=== PATIENT | male | born 1930 | race Caucasian/White ===

== ENCOUNTER 2017-11-17 13:29 | Emergency (ER) | payer MEDICARE, BC ==
[2017-11-17 14:18] VITALS: RESP 20
[2017-11-17] MEDS ORDERED: HYDROcodone/APAP 5-325MG 1 EACH TAB PO STA (15:12)
--- NOTE | 2017-11-17 15:52 | ED ---
Back Pain HPI - General Chief Complaint: Back Pain/Injury Stated Complaint: sciatic nerve Time Seen by Provider: 11/17/17 14:56 Source: patient, RN notes reviewed Mode of arrival: wheelchair Limitations: no limitations - History of Present Illness Initial Comments: This is an 87-year-old male presents emergency Department chief complaint of severe right leg right low back pain. Patient states it started a few days ago has been seen his chiropractor for but has had no relief. Patient states he normally has some issues but not to this extent. He states normally goes chiropractor he is much better. He is advised to come to the emergency department for possible MRI as suggested by his chiropractor. Patient denies any leg swelling, leg pain, discoloration. He has no prior DVT. Denies any abdominal pain, chest pain, shortness of breath. He states the worst pain is just distal of his hip. He denies any falls or trauma. He states he has excruciating pain with weightbearing on the right side but also with twisting. He states he feels better when he forward flex at the hips. He denies any dysuria hematuria. - Related Data Home Medications Medication Instructions Recorded Confirmed Atorvastatin [Lipitor] 10 mg PO DAILY 15 12/03/14 Previous Rx's Medication Instructions Recorded Apixaban [Eliquis] 2.5 mg PO BID #14 tab 12/03/14 Levofloxacin [Levaquin] 500 mg PO DAILY #10 tab 12/03/14 predniSONE 50 mg PO DAILY #5 tab 12/03/14 Hydrocodone/Acetaminophen [[place] 1 tab PO Q6HR PRN #20 tab 11/17/17 5-325] predniSONE 50 mg PO DAILY #5 tab 11/17/17 Allergies Allergy/AdvReac Type Severity Reaction Status Date / Time Sulfa (Sulfonamide Allergy Unknown Verified 11/17/17 14:18 Antibiotics) Review of Systems ROS Statement: Those systems with pertinent positive or pertinent negative responses have been documented in the HPI. ROS Other: All systems not noted in ROS Statement are negative. Past Medical History Past Medical History: Atrial Fibrillation, Hyperlipidemia, Hypertension Additional Past Medical History / Comment(s): sciatica History of Any Multi-Drug Resistant Organisms: None Reported Past Surgical History: Appendectomy, Cholecystectomy Past Psychological History: No Psychological Hx Reported Smoking Status: Former smoker Past Alcohol Use History: Occasional Past Drug Use History: Unable to Obtain General Exam Limitations: no limitations General appearance: alert, in no apparent distress Head exam: Present: atraumatic, normocephalic, normal inspection Respiratory exam: Present: normal lung sounds bilaterally. Absent: respiratory distress, wheezes, rales, rhonchi, stridor Cardiovascular Exam: Present: regular rate, normal rhythm, normal heart sounds. Absent: systolic murmur, diastolic murmur, rubs, gallop, clicks GI/Abdominal exam: Present: soft, normal bowel sounds. Absent: distended, tenderness, guarding, rebound, rigid Extremities exam: Present: other (Pain with logrolling of the right hip, pedal pulses equal bilaterally there is no swelling no discoloration and no change in warmth of either leg he does have some tenderness at the right hip) Back exam: Present: full ROM, tenderness (Right low back), paraspinal tenderness. Absent: vertebral tenderness Skin exam: Present: warm, dry, intact, normal color. Absent: rash Course Vital Signs 11/17/17 14:14 Temperature 98.0 F Pulse Rate 78 Respiratory 20 Rate Blood Pressure 169/81 O2 Sat by Pulse 96 Oximetry Medical Decision Making - Medical Decision Making 87-year-old male presented from for back and leg pain. Patient has severe degenerative disc disease, lumbar radiculopathy and spinal stenosis. Patient will be given pain medication, steroids. He is advised follow-up with Dr. Mer[facility] Patient does not have any red flag symptoms he has no bowel bladder incontinence or retention. Patient has normal pulses of lower extremities. Patient agrees to plan return parameters were discussed. Disposition Clinical Impression: Lumbar radiculopathy, acute, Lumbar spinal stenosis, Lumbar degenerative disc disease Disposition: HOME SELF-CARE Condition: Stable Instructions: Lumbar Radiculopathy (ED), Lumbar Spinal Stenosis (ED) Additional Instructions: Please return to the Emergency Department if symptoms worsen or any other concerns. Prescriptions: Hydrocodone/Acetaminophen [[place] 5-325] 1 tab PO Q6HR PRN #20 tab PRN Reason: Pain predniSONE 50 mg PO DAILY #5 tab Referrals: Ben Ryan MD [Primary Care Provider] - 1-2 days Rao Slaughter DO [Doctor of Osteopathic Medicine] - 1-2 days Time of Disposition: 16:27
--- NOTE | 2017-11-17 16:01 | CT ---
EXAMINATION TYPE: CT lumbar spine wo con DATE OF EXAM: 11/17/2017 COMPARISON: NONE HISTORY: low back and sharp shooting pains into right hip. no injury. CT DLP: [address] of the lumbar spine was performed. Bone and soft tissue window settings are submitted as well as coronal and sagittal reconstructions. L1-L2: Normal disc space height. No disc herniation protrusion or central stenosis. No facet joint arthropathy. No evidence for foraminal encroachment. L2-L3: Severe degenerative disc space narrowing with the endplate sclerosis. Ventral and dorsal spond ylosis with posterior disc bulge and encapsulating spur. There is a [id number] central stenosis noted at this level. Mild bilateral foraminal encroachment. L3-L4: Severe degenerative disc space narrowing. Endplate sclerosis. Circumferential disc bulge. Effa cement ventral thecal sac with borderline central stenosis and bilateral lateral recess stenosis. L4-L5: Severe degenerative disc disease. Circumferential disc bulge with greater focal component para centrally and to the right where I cannot exclude a disc protrusion. Right lateral recess stenosis. M oderate central stenosis. Bilateral foraminal encroachment. L5-S1: Severe disc space narrowing. Mild posterior disc bulge. No herniation protrusion or central st enosis. Foramina are patent bilaterally. No paraspinal masses are identified. Lumbar segments are free of fracture. IMPRESSION: 1. Multilevel degenerative disc disease. 2. Multilevel central stenosis as noted.
--- NOTE | 2017-11-17 16:03 | CT ---
EXAMINATION TYPE: CT hip RT wo con DATE OF EXAM: 11/17/2017 COMPARISON: NONE HISTORY: low back and sharp shooting pains into right hip. no injury. CT DLP: 413 mGycm Automated exposure control for dose reduction was used. FINDINGS: There is multilevel degenerative disc disease within the lumbar spine. Vascular calcifications are no calixto. Sclerotic density involving the right femoral neck and acetabulum related to bone island possibl y remote bone infarct. There is no acute fracture. Concentric narrowing the joint space is seen with a nonspherical morphology of the femoral head. Peter elate for arthropathy with femoral acetabular impingement. Atherosclerotic change of the vasculature noted. IMPRESSION: ARTHROPATHY OF THE HIP JOINT WITH NO EVIDENCE OF EROSIVE CHANGE. CORRELATE FOR FEMORAL ACETABULAR IMP INGEMENT. MULTILEVEL SEVERE DEGENERATIVE CHANGE OF THE LUMBAR SPINE.
[2017-11-17 16:44] VITALS: BP 142/66; PULSE 89; TEMP 98
== END 2017-11-17 16:43 | disposition home or self-care (01) ==
LOC: EC 13:29
DX: M48.061 Spinal stenosis, lumbar region without neurogenic claudication (principal); M51.16 Intervertebral disc disorders with radiculopathy, lumbar region; E78.5 Hyperlipidemia, unspecified; Z87.891 Personal history of nicotine dependence; Z79.899 Other long term (current) drug therapy; Z88.2 Allergy status to sulfonamides
CPT/HCPCS: 72131; 99283

== ENCOUNTER → 2017-12-18 | Outpatient (CLI) | payer MEDICARE, BC ==
[2017-12-18 13:59] LABS: HCT 47.1 % (39.0-53.0); HGB 15.4 gm/dL (13.0-17.5); MCH 29.2 pg (25.0-35.0); MCHC 32.6 g/dL (31.0-37.0); MCV 89.3 fL (80.0-100.0); Mean Platelet Volume 6.5; Platelet Count 346 k/uL (150-450); RBC 5.28 m/uL (4.30-5.90); RDW 13.9 % (11.5-15.5); WBC 11.9 k/uL (3.8-10.6)
[2017-12-18 14:00] LABS: Appearance,Urine Clear (Clear); Bilirubin,Urine Negative (Negative); Blood,Urine Negative (Negative); Color,Urine Light Yellow; Glucose,Urine (UA) Negative (Negative); Ketones,Urine Negative (Negative); Leukocyte Esterase,Urine Negative (Negative); Nitrite,Urine Negative (Negative); Protein,Urine Negative (Negative); Specific Gravity,Urine 1.009 (1.001-1.035); Urobilinogen,Urine <2.0 mg/dL (<2.0)
[2017-12-18 14:08] LABS: INR 1.1 (<1.2); Prothrombin Time 10.6 sec (9.0-12.0)
[2017-12-18 14:12] LABS: Albumin 3.8 g/dL (3.5-5.0); Calcium 9.5 mg/dL (8.4-10.2); Potassium 4.5 mmol/L (3.5-5.1); Total Bilirubin 0.9 mg/dL (0.2-1.3); Total Protein 6.8 g/dL (6.3-8.2)
== END | disposition home or self-care (01) ==
LOC: LABPAT 12:46
PROVIDERS: ATTEND Orthopaedic Surgery
DX: Z01.812 Encounter for preprocedural laboratory examination (principal); Z79.01 Long term (current) use of anticoagulants
CPT/HCPCS: 36415; 80053; 81003; 85027; 85610; 85730; 87070

== ENCOUNTER 2018-01-11 13:04 | Inpatient (IN) | payer MEDICARE, BC ==
[2017-12-31 14:42] VITALS: BMI 28.1
[~2018-01-11 13:04] MED LIST: ACETAMINOPHEN TAB 500 MG TAB PO ONE; CLINDAMYCIN 900 MG in DEXTROSE 5% IN WATER 50 ML IVPB ONE; LIDOCAINE 1% 20 ML VIAL (10MG/ML) FOR IV START INTRADERMA PRN; MELOXICAM 7.5 MG TAB PO ONE; MORPHINE SULFATE 4 MG/ML SYRINGE IV PRN; ONDANSETRON 4 MG/2 ML VIAL IVP ONE; TRANEXAMIC ACID 1,000 MG in SODIUM CHLORIDE 0.9% 50 ML IVPB ONE
[2018-01-11 14:04] LABS: Glucose,Whole Blood 78 mg/dL (75-99)
[2018-01-11] MEDS: LACTATED RINGERS 1,000 ML IV SCH ×2 (14:24→20:48)
[2018-01-11] MEDS ORDERED: DEXAMETHASONE SOD PHOSPHATE 10 MG/ML 1 ML VIAL IV ONE (14:24)
[2018-01-11] MEDS ORDERED: ROPIVACAINE 246.25 MG, EPINEPHrine 0.5 MG, KETOROLAC 30 MG, cloNIDine HCL/PF 80 MCG, WA... MISCELLANE ONE ×5 (15:21)
[2018-01-11] MEDS ORDERED: diphenhydrAMINE 50 MG/ML 1 ML VIAL ONE (15:58)
[2018-01-11] MEDS ORDERED: MIDAZOLAM 2 MG/2 ML VIAL ONE (15:58)
[2018-01-11] MEDS ORDERED: CLINDAMYCIN 1,800 MG in SODIUM CHLORIDE 0.9% IRRIGATIO 3,000 ML IRRIGATION ONE (15:58)
[2018-01-11] MEDS ORDERED: fentaNYL (PF) 50 MCG/ML 2 ML AMP ONE (15:58)
[2018-01-11] MEDS ORDERED: SODIUM CHLORIDE 0.9% 100 ML BAG ONE (15:58)
[2018-01-11] MEDS ORDERED: TRANEXAMIC ACID 1,000 MG/10 ML VIAL ONE (15:58)
[2018-01-11] MEDS ORDERED: LACTATED RINGERS 1,000 ML IV ONE (17:15)
[2018-01-11] MEDS ORDERED: BISACODYL 10 MG SUPP RECTAL PRN (18:12)
[2018-01-11] MEDS ORDERED: HYDROcodone/APAP 5-325MG 1 EACH TAB PO PRN ×2 (18:12)
[2018-01-11] MEDS ORDERED: NA PHOS,M-B/NA PHOS,DI-BA 133 ML ENEMA RECTAL PRN (18:12)
[2018-01-11] MEDS ORDERED: MAGNESIUM HYDROXIDE 2,400 MG/10 ML CUP PO PRN (18:12)
[2018-01-11] MEDS ORDERED: HYDROmorphone 0.5 MG/0.5 ML SYRINGE IVP PRN ×4 (18:12)
[2018-01-11] MEDS ORDERED: ONDANSETRON 4 MG/2 ML VIAL IVP PRN (18:12)
[2018-01-11] MEDS ORDERED: NALOXONE 0.4 MG/ML 1 ML VIAL IV PRN (18:12)
[2018-01-11] MEDS ORDERED: ACETAMINOPHEN TAB 325 MG TAB PO PRN (18:12)
[2018-01-11] MEDS ORDERED: WARFARIN 5 MG TAB PO ONE (18:30)
--- NOTE | 2018-01-11 18:36 | XR ---
EXAMINATION TYPE: XR knee limited RT DATE OF EXAM: 01/11/2018 COMPARISON: NONE HISTORY: Postop knee surgery TECHNIQUE: 2 views FINDINGS: There is a right knee prosthesis. Components appear in anatomic position. IMPRESSION: No complicating process seen.
[2018-01-11] MEDS ORDERED: SENNOSIDES-DOCUSATE SODIUM 1 EACH TAB PO SCH (21:00)
[2018-01-12] MEDS: CLINDAMYCIN 900 MG in DEXTROSE 5% IN WATER 50 ML IVPB SCH ×4 (00:17→05:10)
--- NOTE | 2018-01-12 00:21 | PN ---
PROGRESS NOTE REASON FOR CONSULTATION: Postoperative medical management. HISTORY OF PRESENT ILLNESS: This 87-year-old gentleman was admitted to the hospital, seen preoperatively. The patient has underlying history of paroxysmal atrial fibrillation and suffers from significant degenerative arthritis. He had recent significant sciatic nerve pain which has improved with epidural injections. The patient also has significant degenerative arthritic pain in the knee with difficulty walking. The patient in view of this underwent right total knee arthroplasty. The patient has a history of hypertension, controlled. REVIEW OF SYSTEMS: NEURO: Denies any headaches, dizziness. PSYCH: No anxiety. CARDIAC: No chest pain, angina, palpitation. RESPIRATORY: No shortness of breath, cough. GI: No nausea, vomiting, abdominal pain. : Has IDC. EXTREMITIES: Denies pain. At present the patient is still under the effect of the spinal anesthetic. PHYSICAL EXAMINATION: Pleasant gentleman in no distress. Vital signs revealed temperature was 96.9, pulse 89, respirations 16, blood pressure 138/66, pulse ox 96% on room air. HEENT: Normocephalic. NECK: No JVD. CHEST: Clear to auscultation. CARDIAC: Normal S1, S2 with no gallop. Systolic murmur 2/6, left sternal border. Regular rhythm. ABDOMEN: Soft. Bowel sounds present. EXTREMITIES: No edema. Neurologically awake, alert, oriented x3 with well-coordinated movements, both upper extremities. LABORATORY ASSESSMENT: Blood sugar of 378 preoperatively. ASSESSMENT: 1. Paroxysmal atrial fibrillation. 2. Hypertension, controlled. 3. Degenerative arthritis, lumbosacral spine and right knee joint. 4. Status post right knee arthroplasty. PLAN: The patient is stable. Continue present medical regimen. Patient's condition discussed with the patient. Prognosis guarded. We will start the patient back on Eliquis tomorrow if that is okay with the surgeon. Prognosis guarded. MMODL / IJN: [id number] /
[2018-01-12] MEDS: LACTATED RINGERS 1,000 ML IV SCH ×2 (05:11→09:09)
[2018-01-12 08:11] VITALS: BP 141/65; PULSE 69; RESP 14; TEMP 97.1
[2018-01-12 08:29] LABS: HCT 40.6 % (39.0-53.0); HGB 13.6 gm/dL (13.0-17.5); MCH 30.4 pg (25.0-35.0); MCHC 33.5 g/dL (31.0-37.0); MCV 90.6 fL (80.0-100.0); Platelet Count 316 k/uL (150-450); RBC 4.48 m/uL (4.30-5.90); RDW 14.4 % (11.5-15.5)
--- NOTE | 2018-01-12 08:59 | P.DS ---
Providers Date of admission: 01/11/18 13:04 Expected date of discharge: 01/12/18 Attending physician: Ld Law Consults: 01/11/18 18:12 Consult Physician Routine Consulting Provider: Ben Ryan Consult Reason/Comments: Medical management Do you want consulting provider notified?: Yes Primary care physician: Ben Ryan - Discharge Diagnosis(es) (1) Status post total right knee replacement Current Visit: Yes Status: Acute (2) Osteoarthritis of right knee Current Visit: Yes Status: Acute Hospital Course: This is a pleasant 87-year-old male last seen in our office with complaints of right knee pain. Patient has known history of degenerative arthritis of the right knee and presented to discuss options. After discussion and consideration , patient elected to proceed with a total knee arthroplasty of the right knee. The patient was seen preoperatively and medically cleared for surgery by his primary care physician. The patient was admitted to [facility] and underwent right total knee arthroplasty on 01/11/[address] Law. The procedure was performed without complications or sequelae. The patient has done well postoperatively. The patient was seen and evaluated at bedside today and denies any new complaints. Pain is reasonably controlled. Dressing is clean dry and intact. Incision looks fine with no erythema or active drainage. Calf is soft and nontender. The patient has full foot and ankle motion without difficulty. Patient's right lower extremity is neurovascular intact. Patient is orthopedically stable for discharge to home today. Pertinent Studies: Laboratory Tests 01/12/18 07:57 WBC 21.0 H RBC 4.48 Hgb 13.6 Hct 40.6 Patient Condition at Discharge: Stable Plan - Discharge Summary Discharge Rx Participant: No New Discharge Prescriptions: New HYDROcodone/APAP 5-325MG [[place] 5-325] 1 - 2 each PO Q4-6H PRN #90 tab PRN Reason: Pain Sennosides-Docusate Sodium [Senokot-S] 1 tab PO BID #60 tablet No Action Atorvastatin [Lipitor] 10 mg PO DAILY Losartan Potassium [Cozaar] 100 mg PO DAILY Apixaban [Eliquis] 5 mg PO BID Hydrochlorothiazide 12.5 mg PO DAILY Discharge Medication List Atorvastatin [Lipitor] 10 mg PO DAILY 12/03/14 [History] Apixaban [Eliquis] 5 mg PO BID 12/31/17 [History] Hydrochlorothiazide 12.5 mg PO DAILY 12/31/17 [History] Losartan Potassium [Cozaar] 100 mg PO DAILY 12/31/17 [History] HYDROcodone/APAP 5-325MG [[place] 5-325] 1 - 2 each PO Q4-6H PRN #90 tab 01/11/18 [Rx] Sennosides-Docusate Sodium [Senokot-S] 1 tab PO BID #60 tablet 01/11/18 [Rx] Follow up Appointment(s)/Referral(s): Wilma Austin PAC [PHYSICIAN MIDWIFE PRACTITIONER] - 2 Weeks Ben Ryan MD [Primary Care Provider] - 1 Week Ambulatory/Diagnostic Orders: Continuous Passive Motion (CPM) Machine [DME.AMB1] Time Frame: 3 Weeks, Facility : [facility], Location: Case Management Activity/Diet/Wound Care/Special Instructions: May bear wt as tolerated with walker. May shower if no drainage from incision. CPM 5-6h daily. Medical to manage anticoagulation. Discharge Disposition: HOME WITH HOME HEALTH SERVICES
[2018-01-12] MEDS ORDERED: MELOXICAM 7.5 MG TAB PO SCH (09:00)
[2018-01-12] MEDS ORDERED: LOSARTAN 50 MG TAB PO SCH (09:00)
[2018-01-12] MEDS ORDERED: APIXABAN 5 MG TAB PO SCH (09:00)
[2018-01-12 09:59] LABS: Lymphocytes # (M) 5.46 k/uL (1.0-4.8); Neutrophils # (M) 14.28 k/uL (1.3-7.7); Neutrophils % (M) 68 %
[2018-01-12 10:00] LABS: Monocytes # (M) 1.26 k/uL (0-1.0); Nucleated Red Blood Cells 0 /100 WBC (0-0); Total Cells Counted 100
--- NOTE | 2018-01-12 22:33 | PN ---
PROGRESS NOTE ATTENDING PHYSICIAN: Dr. Law. CONSULTING PHYSICIAN: Dr. Joel Ryan. CHIEF COMPLAINT: Re-evaluation. HISTORY OF PRESENT ILLNESS: This 87-year-old gentleman was admitted to the hospital and underwent right total knee arthroplasty. The patient is doing fairly well this morning. He has a history of paroxysmal atrial fibrillation and hypertension. Blood pressure is controlled. The patient's rhythm is sinus. REVIEW OF SYSTEMS: NEURO: Denies any headaches, dizziness. PSYCH: No anxiety. CARDIAC: No chest pain, angina, palpitations. RESPIRATORY: Denies shortness of breath, cough. GI: No nausea, vomiting, abdominal pain, diarrhea. : No symptoms of dysuria, hematuria. EXTREMITIES: Pain at the right knee. CONSTITUTIONAL: No fever, chills. PHYSICAL EXAMINATION: Pleasant gentleman in no distress. Vital signs revealed temperature 98.3, pulse 80, blood pressure was 94/61, respirations are 18 pulse ox 100% on 2L. HEENT: Normocephalic. NECK: No JVD. CHEST: Clear to auscultation. CARDIAC: Normal S1, S2 with no gallops, murmurs. Regular rhythm. ABDOMEN: Soft. Bowel sounds present. EXTREMITIES: No edema. No tenderness. NEUROLOGIC: Awake, alert, oriented, well-coordinated movements, both upper extremities. LABORATORY ASSESSMENT: White count 21,000, hemoglobin 13.6. The elevated white count is probably more related to steroid use. The patient otherwise feeling well. We will continue present medical regimen. The patient to resume Eliquis as soon as possible. The patient's condition discussed with the patient. Prognosis guarded. MMODL / IJN: [id number] /
--- NOTE | 2018-01-20 17:22 | P.OP ---
Date of Procedure: 01/11/18 Procedure(s) Performed: PREOPERATIVE DIAGNOSIS: Right knee severe osteoarthritis with genu varum POSTOPERATIVE DIAGNOSIS: Right knee severe osteoarthritis with genu varum OPERATION: Right knee cemented total replacement arthroplasty. ANESTHESIA: Spinal ESTIMATED BLOOD LOSS: 100 ml. RADIOSONDE OPERATOR: Wilma Austin PA-C (assistance with: patient positioning, retraction, exposure, hemostasis, leg positioning, implantation, irrigation, closure, dressing) COMPLICATIONS: None apparent. COMPONENTS IMPLANTED: Persona system from [employer] INDICATIONS: Mr. Palma is an 87-year-old male with a history of knee osteoarthritis. The patient's knee is end-stage, and conservative management has failed. The operation of knee replacement has been discussed at length in the office, as well as potential risks and complications. These are inclusive of, but not limited to: bleeding, infection, scarring, discomfort, blood vessel and nerve damage, need for further surgery, failure to relieve symptoms, persistence, recurrence, or worsening of problems, loosening, dislocation, wear , blood clot, pulmonary embolism, , gait dysfunction, stiffness, and other risks as discussed in the office. The patient elects to proceed and the consent form has been signed. PROCEDURE: The patient was taken to the operating room and positioned on the operating room table in the supine position. Anesthesia was initiated. Care was taken to make sure that all pressure points were adequately padded. The operative lower extremity was prepped and draped in the usual aseptic fashion using ChloraPrep. Ioban drape was used for the case and the patient received intravenous antibiotics within one hour of the incision. A pneumotourniquet and leg alvarez were used for the case. The limb was exsanguinated with an Esmarch bandage and the tourniquet was inflated to 350 mmHg. Time-out was called confirming the patient's identity, side, procedure and administration of antibiotics. The incision was then created midline directly over the knee, carried down through skin and into the subcutaneous tissues and down to fascia. Full thickness subcutaneous medial flap was developed. Medial parapatellar arthrotomy was performed and the interior of the knee was inspected. There was end-stage osteoarthritis of the knee with a mild to moderate genu varum type deformity. The fat pad was excised and proximal medial release on the tibia was completed using meticulous dissection and a curved osteotome. The anterior cruciate ligament was taken down. Note was made of significant attrition of the anterior and significant degenerative appearance of the posterior cruciate ligaments. The exposure was excellent. The knee was flexed 90 degrees and the patella was everted. A spot was chosen on the femur approximately 1 cm anterior to the posterior cruciate ligament insertion and an intramedullary hole was created within the femur. The intramedullary guide was then set to 5 degrees of valgus. The distal cutting block was attached and pinned into position. An appropriate amount of distal femoral resection was set. The oscillating saw was then used to make the distal femoral cut. This cut was confirmed to be flat with the flat end of an osteotome. The retractors were placed around the tibia and the tibial surface was addressed. The angle and depth of resection was adjusted using an extramedullary cutting guide. The guide had a built-in 3 degree posterior slope cut. Once the cutting guide was adjusted appropriately and in line with the axis of the tibia and confirmed to be in good position in relation to the second metatarsal and transmalleolar axis, the tibial cut was then created with protection of the posterior neurovascular structures and the collateral ligaments. The tibial cut surface was removed and sized. Femoral sizing was then accomplished using anterior referencing. Care was taken to analyze the posterior condyles for signs of deficiency or severe wear, and adjustments to the guide were made, as appropriate. 3 degree external rotation pins were placed. The cutting jig for the femur was applied to these pins. The planned cuts were further analyzed prior to performing them with the oscillating saw. No femoral notching was produced. Bone fragments were removed and the cut surfaces were finished, as necessary, with a reciprocating saw. Spacer block technique was then used to confirm that the flexion and extension gaps were equal. Soft tissue releases and adjustment of the tibial and/or femoral cuts were made, as necessary, until the gaps were equal. This included release of the posterior cruciate ligament, which was tight in this patient and , if left unreleased, would have resulted in poor kinematics and possibly early loosening. The femur was then further finished for a posterior cruciate ligament substituting component. Patellar resurfacing was performed using a reamer. The size of the required patellar component was estimated and the patellar surface was then reamed down to a residual thickness which would recreate the iroquois thickness with the component. The placement of the patellar component was influenced by the degree of patellar subluxation, if any, noted on the preoperative x-rays. Prior to placing trial components, anesthetic solution consisting of ropivicaine with epinephrine, ketorolac, and clonidine was injected carefully and methodically in a grid pattern using aspiration technique into the soft tissue around the knee circumferentially, starting with the deeper tissues first and progressing to fascia, and then finally the skin/subcutaneous tissue. Particular care was taken when injecting the posterior capsule. The trial components were inserted. The tibial tray was allowed to self center and the patella was noted to track very well. The position of the tibial component was marked and the tibia was then finished for a stemmed tibial component. Cement was mixed on the back table and applied to the final components. Trial components were removed and the cut surfaces of the bone were pulse lavaged thoroughly and dried. Cement was then applied to the tibial surface and pressurized into the surface using finger pressurization technique. The tibial component was then applied and excess cement was removed after it was impacted securely and noted to be flush with the cut surface. In similar fashion, the cement was applied to the cut femoral surface, pressurized in using finger pressurization and the component was impacted into place. Excess cement was removed. The polyethylene spacer was then implanted and locked into position. The patellar component was then applied in similar technique and a patellar clamp was used to hold the patella in place as the cement hardened. Once the cement had fully hardened, the knee was reinspected. Any other cement extrusion was removed and final kinematic testing showed range of motion from 0 to 130 degrees with excellent stability, both medially and laterally and appropriate alignment of the leg. Patellar tracking was excellent. The knee was then thoroughly pulse lavaged with normal saline. The tourniquet was deflated and hemostasis was obtained with electrocautery and IV tranexamic acid, 1 g given at the start of the operation and 1 g at the start of closure. Closure was with #2 Ethibond in the fascia/capsule and supplemented with #2 Quill, 2-0 Vicryl suture was used for the subcutaneous tissues and 3-0 Quill for the skin. Dermabond/Steri-Strips were then applied. A lightly compressive dressing was applied using Webril and an Benson wrap. The patient was then transferred to stretcher and taken to the recovery room in stable condition. Sponge and needle counts were correct.
== END 2018-01-12 15:30 | disposition home health service (06) | DRG 470 ==
LOC: 2ORMAIN 13:04 → 3SUR 18:08
PROVIDERS: ADMIT Orthopaedic Surgery; ATTEND Orthopaedic Surgery
PROC: 0SRC0J9 Replacement of Right Knee Joint with Synthetic Substitute, Cemented, Open Approach (ICD-10-PCS; principal; 2018-01-11 15:30)
DX: M17.11 Unilateral primary osteoarthritis, right knee (principal); I48.0 Paroxysmal atrial fibrillation; M21.161 Varus deformity, not elsewhere classified, right knee; I10 Essential (primary) hypertension; N40.1 Benign prostatic hyperplasia with lower urinary tract symptoms; R35.1 Nocturia; M50.30 Other cervical disc degeneration, unspecified cervical region; M47.26 Other spondylosis with radiculopathy, lumbar region; E78.5 Hyperlipidemia, unspecified; Z79.01 Long term (current) use of anticoagulants; Z79.899 Other long term (current) drug therapy; Z90.49 Acquired absence of other specified parts of digestive tract; Z98.42 Cataract extraction status, left eye; Z98.41 Cataract extraction status, right eye; Z88.0 Allergy status to penicillin; Z88.2 Allergy status to sulfonamides
CPT/HCPCS: 85025; 88300

== ENCOUNTER 2018-02-03 02:24 | Emergency (ER) | payer MEDICARE, BC ==
[2018-02-03 02:41] VITALS: RESP 18; TEMP 98.3
--- NOTE | 2018-02-03 03:34 | ED ---
General Adult HPI - General Chief complaint: Urogenital Stated complaint: MALE Time Seen by Provider: 02/03/18 02:45 Source: patient Mode of arrival: wheelchair Limitations: no limitations - History of Present Illness Initial comments: 87-year-old male patient presents to emergency department today for evaluation of decreased urine output. Patient states that his last full urination occurred around 1900 evening. Patient states he is usually up several times throughout the night urinating because he does take a water pill. He states that he has not gotten up at all tonight. Patient states that just prior to arrival he was able to void a very small amount. Patient states doesn't feel pressure in his suprapubic region or the urge to urinate but is concerned because he usually goes so often. Patient denies any back pain. Denies any current nausea, vomiting, dizziness, weakness, or abdominal pain. States that Thursday evening he did have an episode where he became dizzy, nauseous, and had some sweats but the symptoms resolved quickly. Patient denies any history of kidney problems. He denies any issues previously with urinary retention. Patient denies any recent rash, fever, chills, shortness breath, chest pain, diarrhea, constipation, back pain, numbness, tingling, dizziness, weakness, hematuria, dysuria, headache, visual changes, or any other complaints. Patient did have right total knee replacement approximately 3 weeks ago. - Related Data Home Medications Medication Instructions Recorded Confirmed Atorvastatin [Lipitor] 10 mg PO DAILY 12/03/14 02/03/18 Apixaban [Eliquis] 5 mg PO BID 12/31/17 02/03/18 Losartan Potassium [Cozaar] 100 mg PO DAILY 12/31/17 02/03/18 RX: Hydrochlorothiazide 12.5 mg PO DAILY 12/31/17 02/03/18 Previous Rx's Medication Instructions Recorded RX: HYDROcodone/APAP 5-325MG 1 - 2 each PO Q4-6H PRN #90 tab 01/11/18 [[place] 5-325] Sennosides-Docusate Sodium 1 tab PO BID #60 tablet 01/11/18 [Senokot-S] Allergies Allergy/AdvReac Type Severity Reaction Status Date / Time Penicillins Allergy Unknown Verified 02/03/18 02:41 Sulfa (Sulfonamide Allergy Unknown Verified 02/03/18 02:41 Antibiotics) Review of Systems ROS Statement: Those systems with pertinent positive or pertinent negative responses have been documented in the HPI. ROS Other: All systems not noted in ROS Statement are negative. Past Medical History Past Medical History: Atrial Fibrillation, Hyperlipidemia, Hypertension Additional Past Medical History / Comment(s): DDD, spinal stenosis with bone spur, sciatica, pain clinic epidural injections December 01, 2017 History of Any Multi-Drug Resistant Organisms: None Reported Past Surgical History: Appendectomy, Cholecystectomy, Joint Replacement Additional Past Surgical History / Comment(s): josé luis cataract surgery lens implant , Right knee replacement Past Anesthesia/Blood Transfusion Reactions: No Reported Reaction Past Psychological History: No Psychological Hx Reported Smoking Status: Former smoker Past Alcohol Use History: Occasional Past Drug Use History: None Reported - Past Family History Brother(s) Family Medical History: Cancer Additional Family Medical History / Comment(s): colon cancer General Exam Limitations: no limitations General appearance: alert, in no apparent distress, other (This is a well- developed, well-nourished elderly male patient in no acute distress. Vital signs upon presentation are temperature 98.3F, pulse 76, respirations 18, blood pressure 149/89, pulse ox 98% on room air.) Eye exam: Present: normal appearance, PERRL, EOMI. Absent: scleral icterus, conjunctival injection, periorbital swelling ENT exam: Present: normal exam, mucous membranes moist Respiratory exam: Present: normal lung sounds bilaterally. Absent: respiratory distress, wheezes, rales, rhonchi, stridor Cardiovascular Exam: Present: regular rate, normal rhythm, normal heart sounds. Absent: systolic murmur, diastolic murmur, rubs, gallop, clicks GI/Abdominal exam: Present: soft, normal bowel sounds. Absent: distended, tenderness, guarding, rebound, rigid Back exam: Present: normal inspection. Absent: CVA tenderness (R), CVA tenderness (L) Neurological exam: Present: alert, oriented X3, CN II-XII intact Psychiatric exam: Present: normal affect, normal mood Skin exam: Present: warm, dry, intact, normal color. Absent: rash Course Vital Signs 02/03/18 02/03/18 02:38 04:26 Temperature 98.3 F Pulse Rate 76 72 Respiratory 18 18 Rate Blood Pressure 149/89 147/77 O2 Sat by Pulse 98 98 Oximetry - Reevaluation(s) Reevaluation #1: 02/03/18 03:35 Nursing staff did perform a bladder scan which showed 29 mL in the bladder. I did perform bedside ultrasound and showed no evidence of bladder distention. We will obtain labs to evaluate kidney function. Medical Decision Making - Medical Decision Making 87-year-old male patient presented to the emergency department today for evaluation of decreased urine output. Physical examination is unremarkable. Bladder scan showed 29 mL, ultrasound showed no distention of the urinary bladder. We did perform labs, kidney function is normal at this time. I did discuss results and findings with the patient. He is instructed to increase fluid intake. He is instructed to follow-up with his doctor as soon as possible. Return parameters discussed in detail. He verbalizes understanding and agreed with this plan. - Lab Data Result diagrams: 02/03/18 03:34 02/03/18 03:34 Lab Results 02/03/18 02/03/18 02/03/18 Range/Units 03:34 03:34 03:34 WBC 10.0 (3.8-10.6) k/uL RBC 4.22 L (4.30-5.90) m/uL Hgb 13.2 (13.0-17.5) gm/dL Hct 39.1 (39.0-53.0) % MCV 92.5 (80.0-100.0) fL MCH 31.2 (25.0-35.0) pg MCHC 33.7 (31.0-37.0) g/dL RDW 15.6 H (11.5-15.5) % Plt Count 423 (150-450) k/uL Sodium 132 L (137-145) mmol/L Potassium 3.9 (3.5-5.1) mmol/L Chloride 94 L (98-107) mmol/L Carbon Dioxide 28 (22-30) mmol/L Anion Gap 10 mmol/L BUN 19 (9-20) mg/dL Creatinine 1.08 (0.66-1.25) mg/dL Est GFR (CKD-EPI)AfAm 72 (>60 ml/min/1.73 sqM) Est GFR (CKD-EPI)NonAf 62 (>60 ml/min/1.73 sqM) Glucose 93 (74-99) mg/dL Calcium 9.3 (8.4-10.2) mg/dL Total Bilirubin 0.9 (0.2-1.3) mg/dL AST 31 (17-59) U/L ALT 35 (21-72) U/L Alkaline Phosphatase 75 (38-126) U/L Total Protein 6.3 (6.3-8.2) g/dL Albumin 3.5 (3.5-5.0) g/dL Urine Color Yellow Urine Appearance Clear (Clear) Urine pH 7.0 (5.0-8.0) Ur Specific [place] 1.012 (1.001-1.035) Urine Protein Negative (Negative) Urine Glucose (UA) Negative (Negative) Urine Ketones Negative (Negative) Urine Blood Negative (Negative) Urine Nitrite Negative (Negative) Urine Bilirubin Negative (Negative) Urine Urobilinogen <2.0 (<2.0) mg/dL Ur Leukocyte Esterase Negative (Negative) Disposition Clinical Impression: Feared condition not demonstrated Disposition: HOME SELF-CARE Condition: Good Additional Instructions: Your urine test and lab work was reviewed and appeared normal. Increase fluid intake. Follow-up with your primary care physician for recheck as soon as possible. All him in the morning for an appointment. Return here immediately if her symptoms worsen, change, or if you develop any new symptoms. Is patient prescribed a controlled substance at d/c from ED?: No Referrals: Ben Ryan MD [Primary Care Provider] - 1-2 days Time of Disposition: 04:24
[2018-02-03 03:49] LABS: HCT 39.1 % (39.0-53.0); HGB 13.2 gm/dL (13.0-17.5); MCH 31.2 pg (25.0-35.0); MCHC 33.7 g/dL (31.0-37.0); MCV 92.5 fL (80.0-100.0); Platelet Count 423 k/uL (150-450); RBC 4.22 m/uL (4.30-5.90); RDW 15.6 % (11.5-15.5)
[2018-02-03 03:57] LABS: Appearance,Urine Clear (Clear); Bilirubin,Urine Negative (Negative); Blood,Urine Negative (Negative); Color,Urine Yellow; Glucose,Urine (UA) Negative (Negative); Ketones,Urine Negative (Negative); Leukocyte Esterase,Urine Negative (Negative); Nitrite,Urine Negative (Negative); Protein,Urine Negative (Negative); Specific Gravity,Urine 1.012 (1.001-1.035); Urobilinogen,Urine <2.0 mg/dL (<2.0)
[2018-02-03 04:06] LABS: Albumin 3.5 g/dL (3.5-5.0); Calcium 9.3 mg/dL (8.4-10.2); Potassium 3.9 mmol/L (3.5-5.1); Total Bilirubin 0.9 mg/dL (0.2-1.3); Total Protein 6.3 g/dL (6.3-8.2)
[2018-02-03 04:26] VITALS: BP 147/77; PULSE 72
[2018-02-03 08:02] LABS: Neutrophils % (M) 38 %; Nucleated Red Blood Cells 0 /100 WBC (0-0); Total Cells Counted 100
== END 2018-02-03 04:37 | disposition home or self-care (01) ==
LOC: EC 02:24
DX: Z71.1 Person with feared health complaint in whom no diagnosis is made (principal); I48.91 Unspecified atrial fibrillation; E78.5 Hyperlipidemia, unspecified; I10 Essential (primary) hypertension; Z96.651 Presence of right artificial knee joint; Z87.891 Personal history of nicotine dependence; Z79.01 Long term (current) use of anticoagulants; Z79.899 Other long term (current) drug therapy; Z88.0 Allergy status to penicillin; Z88.2 Allergy status to sulfonamides
CPT/HCPCS: 36415; 51798; 80053; 81003; 85025; 99284

== ENCOUNTER → 2018-06-25 | Outpatient (CLI) | payer MEDICARE, BC ==
[2018-06-25 09:52] LABS: INR 1.1 (<1.2); Prothrombin Time 10.7 sec (9.0-12.0)
--- NOTE | 2018-06-25 10:38 | XR ---
EXAMINATION TYPE: XR chest 2V DATE OF EXAM: 06/25/2018 COMPARISON: 12/03/2014 INDICATION: Presurgical clearance TECHNIQUE: Frontal and lateral views of the chest are obtained. FINDINGS: The heart size is normal. The pulmonary vasculature is normal. The lungs are clear. IMPRESSION: 1. No acute pulmonary process.
== END ==
LOC: LABPAT 08:38
PROVIDERS: ATTEND Orthopaedic Surgery Orthopaedic Surgery of the Spine
DX: Z01.818 Encounter for other preprocedural examination (principal); M48.00 Spinal stenosis, site unspecified; Z51.81 Encounter for therapeutic drug level monitoring; Z79.01 Long term (current) use of anticoagulants
CPT/HCPCS: 36415; 71046; 85610

== ENCOUNTER → 2018-06-29 | Outpatient (CLI) | payer MEDICARE, BC | END | disposition home or self-care (01) | LOC: LABPAT 14:17 | PROVIDERS: ATTEND Orthopaedic Surgery Orthopaedic Surgery of the Spine | DX: Z01.812 Encounter for preprocedural laboratory examination (principal) | CPT/HCPCS: 87070 ==

== ENCOUNTER → 2018-07-02 | Outpatient (CLI) | payer MEDICARE, BC ==
--- NOTE | 2018-07-02 12:20 | CT ---
EXAMINATION TYPE: CT abdomen pelvis w con DATE OF EXAM: 07/02/2018 COMPARISON: None HISTORY: Non-hodgkin lymphoma, severe back pain CT DLP: 903.3 mGycm CONTRAST: CT scan of the abdomen and pelvis is performed and with IV Contrast, patient injected with 100 mL of Isovue 300. FINDINGS: LUNG BASES-: No visible nodule. No infiltrate. LIVER/GB: Cholecystectomy changes. No space occupying hepatic lesion. Biliary tree is of normal ca liber. PANCREAS: No inflammation. No distinct mass. SPLEEN: No splenic enlargement. No lesion seen. ADRENALS: No nodule. No thickening. KIDNEYS/BLADDER: No hydronephrosis. No nephrolithiasis. Renal cysts are noted bilaterally. Urinary bladder grossly unremarkable. BOWEL: Normal appendix. Normal bowel caliber. No inflammation. GENITAL ORGANS: No gross abnormality. LYMPH NODES: No greater than 1cm abdominal or pelvic lymph nodes are appreciated. AORTA: No significant abnormality. OSSEOUS STRUCTURES: Severe multilevel degenerative disc disease. Canal stenosis L2-3. OTHER: No significant additional abnormality is seen. IMPRESSION: 1. No evidence for adenopathy. 2. Severe multilevel degenerative disc disease. Canal stenosis L2-3. 3. No acute intra-abdominal process.
== END | disposition home or self-care (01) ==
LOC: RADCTMAIN 10:07
PROVIDERS: ATTEND Internal Medicine
DX: C85.90 Non-Hodgkin lymphoma, unspecified, unspecified site (principal); M48.061 Spinal stenosis, lumbar region without neurogenic claudication; M51.36 Other intervertebral disc degeneration, lumbar region
CPT/HCPCS: 74177; Q9967

== ENCOUNTER 2018-07-05 12:46 | Inpatient (IN) | payer MEDICARE, BC ==
[2018-06-28 16:16] VITALS: BMI 25.8
[~2018-07-05 12:46] MED LIST changes: -ACETAMINOPHEN TAB 500 MG TAB PO ONE; +BACITRACIN 50,000 UNIT, POLYMYXIN B 500,000 UNIT in SODIUM CHLORIDE 0.9% IRRIGATIO 1,00... IRRIGATION ONE; +DEXAMETHASONE SOD PHOSPHATE 10 MG/ML 1 ML VIAL IV ONE; +HYDROmorphone 0.5 MG/0.5 ML SYRINGE IVP PRN; -MELOXICAM 7.5 MG TAB PO ONE; +MIDAZOLAM 2 MG/2 ML VIAL IV PRN; -MORPHINE SULFATE 4 MG/ML SYRINGE IV PRN; -TRANEXAMIC ACID 1,000 MG in SODIUM CHLORIDE 0.9% 50 ML IVPB ONE; +fentaNYL (PF) 50 MCG/ML 2 ML AMP IV PRN
[2018-07-05] MEDS: LACTATED RINGERS 1,000 ML IV SCH ×3 (13:38→23:32)
[2018-07-05] MEDS ORDERED: ONDANSETRON 4 MG/2 ML VIAL IVP ONE (13:45)
[2018-07-05] MEDS ORDERED: fentaNYL (PF) 50 MCG/ML 2 ML AMP IV ONE (15:16)
[2018-07-05] MEDS ORDERED: PROPOFOL 10 MG/ML 20 ML VIAL IV ONE (16:30)
[2018-07-05] MEDS ORDERED: LIDOCAINE 1% INJ 10MG/ML (20 ML MDV) ONE (16:30)
[2018-07-05] MEDS ORDERED: MIDAZOLAM 2 MG/2 ML VIAL ONE (16:30)
[2018-07-05] MEDS ORDERED: SUCCINYLCHOLINE CHLORIDE 100 MG/5 ML SYR IV ONE (16:30)
[2018-07-05] MEDS ORDERED: HYDROmorphone (PF) 1 MG/ML ONE (16:30)
[2018-07-05] MEDS ORDERED: KETAMINE 10 MG/ML 20 ML VIAL ONE (16:30)
[2018-07-05] MEDS ORDERED: fentaNYL (PF) 50 MCG/ML 2 ML AMP ONE (16:30)
[2018-07-05] MEDS ORDERED: ePHEDrine SULFATE/0.9% NACL/PF 50 MG/5 ML SYRINGE IV ONE (16:30)
[2018-07-05] MEDS ORDERED: PHENYLEPHRINE-0.9% NACL SYG 1 MG/10 ML SYRINGE ONE (16:30)
[2018-07-05] MEDS ORDERED: LACTATED RINGERS 1,000 ML IV ONE ×2 (16:40→19:22)
[2018-07-05] MEDS ORDERED: LIDOCAINE 0.5%-EPI 1:200,000 50 ML VIAL SQ ONE (16:55)
[2018-07-05] MEDS ORDERED: GELATIN SPONGE,ABSORB (LARGE) 1 EACH SPONGE MISCELLANE ONE (16:56)
[2018-07-05] MEDS ORDERED: THROMBIN (BOVINE) 5,000 UNIT VIAL MISCELLANE ONE (16:56)
[2018-07-05] MEDS ORDERED: methylPREDNISolone ACETATE 40 MG/ML 1 ML VIAL MISCELLANE ONE (17:45)
[2018-07-05] MEDS ORDERED: ONDANSETRON 4 MG/2 ML VIAL IVP PRN (18:09)
[2018-07-05] MEDS ORDERED: MAGNESIUM HYDROXIDE 2,400 MG/10 ML CUP PO PRN (18:09)
[2018-07-05] MEDS ORDERED: BENZOCAINE/MENTHOL LOZENG 1 EACH LOZENGE MUCOUS MEM PRN (18:09)
[2018-07-05] MEDS ORDERED: HYDROmorphone 1 MG/ML 1 ML SYRINGE IVP PRN (18:09)
[2018-07-05] MEDS ORDERED: KETOROLAC 30 MG/ML 1 ML VIAL IVP PRN (18:09)
--- NOTE | 2018-07-05 18:20 | P.OP ---
Date of Procedure: 07/05/18 Preoperative Diagnosis: Spinal stenosis L3 4 L4 5, neurogenic claudication, bilateral lower extremity weakness, low back pain, degenerative disc disease, Postoperative Diagnosis: Same Anesthesia: GETA Pathology: none sent Condition: stable Disposition: PACU Description of Procedure: BRIEF OPERATIVE NOTE Preoperative Diagnosis: Severe spinal stenosis L3 4 L4 5, degenerative disc disease L3 4 L4 5, neurogenic claudication, lower extremity radiculopathy Postoperative Diagnosis: Same Procedure: Laminectomy and decompression with wide bilateral foraminotomies L3 4 and L4 5 Placement of the interlaminar stabilization device, Coflex device at L3 4 L4 5 Surgeon: Dr. Slaughter Sales Operations Consultant: Wilfredo Hooker is present throughout the entire the case persistence during positioning, dissection, exposure, visualization, and all crucial elements of the case as well as closure. Anesthesia: General anesthesia per Dr. Dr. Petersen Estimated blood loss: approximately 100 mL Complications: None apparent Components implanted: Coflex interlaminar stabilization device L3 4 and L4-5, measuring 10 mm at L3 4 and 12 mm at L4 5 Disposition: To recovery room in good stable condition. OPERATIVE INDICATIONS The patient has been having issues in their lower back and lower extremities. he is having severe claudication symptoms due to her severe spinal stenosis at her lumbar spine particularly at L3 4 and L4 5. He is having some issues with weakness in his lower extremities and severe debility and inability to try to get up and walk around due to his back and lower extremity symptoms. We discussed various treatment options. The patient has been through conservative treatment. she is not having any prolonged benefit despite aggressive conservative treatment We discussed various treatment options including surgery , ranging from laminectomy alone to the possibility of decompression with stabilization as well as the decompression and fusion. We felt that the patient could benefit with decompression and interlaminar stabilization,and the patient wishes to proceed with surgery We discussed the risk, patient's alternatives and benefits of surgery including but not limited to, risk of bleeding risk of infection, risk of need for further surgery, risk of decreased , loss of motion, loss of function, nerve damage, paralysis, heart attack, blindness and . OPERATIVE SUMMARY After discussing all the risks, patient alternatives and benefits at length, the patient elected to proceed with surgical intervention, signed informed consent, and presented for their procedure. The patient was seen and examined in the preoperative holding area and the surgical site was marked. The patient was given antibiotics and brought to the operating room. The patient was sedated and intubated by anesthesia in standard fashion. The patient was positioned on to the operating room table in a prone position on the appropriate frame which was well-padded and well molded. We were careful to pad any bony prominences and pressure points. We were careful to maintain the patient's cervical spine and good neutral alignment and position throughout. The patient was prepped and draped in a normal standard fashion. An appropriate timeout and keystone protocol performed. We were able to proceed with the surgery. Fluoroscopy was utilized to establish the appropriate level. The local wound area was infiltrated with local anesthetic. An incision was made at the midline longitudinally over the appropriate levels at L3 4 and L4 5. Dissection was taken down subcutaneously to the level of the fascia which was split midline. Dissection was taken over the lamina. Intraoperative fluoroscopy was taken which showed a marker at the appropriate level at L3-4 . With the appropriate level positively confirmed, we were able to proceed with laminectomy first at L4 5 and the L3 4. The wound was copiously irrigated and suctioned dry as had been done periodically throughout the case. I performed a laminectomy with a combination of curettes and a high- speed bur and Kerrison rongeurs. A small medial facetectomy was performed again further access. A partial foraminotomy was also performed. Portions of the ligamentum flavum were taken down to expose the dura and traversing nerve root. There is severe thickening of the ligamentum flavum and significant facet hypertrophy with osteophytes causing severe central and bilateral foraminal stenosis. This was remedied with the decompression.There is no evidence of dural tear or leak. Good hemostasis maintained. The wound was copiously irrigated and suctioned dry. Good decompression was noted. This was done first at L4 5 and then an L3 4. I was unable to measure the appropriate size interlaminar stabilizing device. I was able get good alignment at the intralaminar spaces. I was able to trial with the appropriate size device and get gentle distraction at each level. We used a 12 mm at L4 5 and a 10 mm at L3 4 I chose he is appropriate size interlaminar stabilizer. The Coflex device was positioned and malleted in place and good alignment good position with good fixation at each level. The construct was checked and found to be stable. There is good decompression without any evidence of dural tear or leak. There is no evidence of fracture. We were able to proceed with closure. The fascia was closed for a watertight closure. The subcuticular tissue was closed with absorbable suture. The wound was cleaned and dried and dressed with the appropriate dressing. The drapes were broken down. The patient was gently rolled back onto their hospital bed being careful to maintain their cervical spine and good neutral alignment and position. They were woken up by anesthesia, extubated, and brought to the recovery room in good stable condition. The patient will be admitted to the hospital for observation and for appropriate postoperative care, medical management and monitoring. We will continue to follow them closely about the postoperative course.
[2018-07-05] MEDS ORDERED: HYDROmorphone 1 MG/ML 1 ML SYRINGE IVP ONE (18:58)
--- NOTE | 2018-07-05 19:16 | XR ---
Two-view spine HISTORY: Laminectomy 3 intraoperative C-arm images document the procedure.
--- NOTE | 2018-07-05 21:33 | FL ---
Fluoroscopy HISTORY: Lumbar laminectomy 9 seconds fluoroscopy time supplied to the referring clinician. 3 intraoperative C-arm images docume nt the procedure. See dictated report from orthopedic surgery.
[2018-07-05] MEDS: CLINDAMYCIN 600 MG in DEXTROSE 5% IN WATER 50 ML IVPB SCH ×2 (23:10)
[2018-07-06] MEDS: SODIUM CHLORIDE 0.9% 1,000 ML IV SCH ×3 (00:14→23:03)
[2018-07-06] MEDS: HYDROcodone/APAP 5-325MG 1 EACH TAB PO PRN ×4 (01:50→21:34)
--- NOTE | 2018-07-06 07:55 | CONS ---
CONSULTATION Consultation regarding medical management postoperatively. HISTORY OF PRESENT ILLNESS: This is an 88-year-old gentleman who is status post lumbar surgery. I have seen the patient preoperatively on the outpatient. The patient has a history of intermittent atrial fibrillation and hypertension controlled. He also has history of degenerative arthritis. He was recently noted to have leukocytosis. Peripheral smear suggests atypical lymphocytes. He had a CAT scan of the abdomen done, which reveals no lymph nodes or retroperitoneal lymph nodes. The patient was seen in the recovery room post surgery. 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 Also history of BPH. PERSONAL HISTORY: Nonsmoker. No alcohol. ALLERGIES: Allergies to PENICILLIN and SULFA. MEDICATIONS: Medications at present include losartan 100 mg daily, hydrochlorothiazide 12.5 mg daily, which is on hold right now. Takes Bude on outpatient, Dulcolax p.r.n., Lipitor 10 mg daily, Eliquis 5 mg b.i.d. SOCIAL HISTORY: , lives with his spouse. FAMILY MEDICAL HISTORY: Father at the age of 83, gastric CA. Mother at the age of 93, ASHD. A brother at the age of 64 CA colon. The patient has a sister 92 in adequate health. Two sons in adequate health and daughter in adequate health. REVIEW OF SYSTEMS: NEURO: Denies any headaches, dizziness. PSYCH: Still drowsy. CARDIAC: Denies chest pain, angina, palpitations. No noted arrhythmia during the surgery. RESPIRATORY: Denies shortness of breath, cough. GI: No nausea, vomiting, abdominal pain. : No symptoms, has IDC. EXTREMITIES: No pain. Still has some numbness. CONSTITUTIONAL: No fever or chills. PHYSICAL EXAMINATION: Pleasant gentleman at present in no distress. VITAL SIGNS: Patient's temperature was normal, pulse 75, respirations 16, blood pressure 123/60, pulse ox 98% on 3 L. HEENT: Normocephalic. Neck decreased range of motion. Pupils are reactive. Oral cavity dry. Chest examination is clear to auscultation. Cardiac: Normal S1, S2 with no gallops. Regular rhythm. Systolic murmur 2/6 left sternal border. ABDOMEN: Soft. Bowel sounds present. Extremities reveal no edema. NEUROLOGICALLY: Drowsy, but arousable. Moves both upper extremities fairly well. LABORATORY ASSESSMENT: None new. ASSESSMENT: 1. Paroxysmal atrial fibrillation. 2. Essential hypertension. 3. Lymphocytosis. 4. 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 PLAN: The patient is stable. Continue present medical regimen. Patient's condition discussed with the patient. Prognosis is guarded. We will resume patient's medication. Hold the hydrochlorothiazide for now. Resume it if the blood pressure goes up. Prognosis remains guarded. MMODL / IJN: [id number] /
[2018-07-06] MEDS: LOSARTAN 50 MG TAB PO SCH (08:31)
[2018-07-06] MEDS: CLINDAMYCIN 600 MG in DEXTROSE 5% IN WATER 50 ML IVPB SCH ×4 (08:32→16:08)
--- NOTE | 2018-07-06 08:37 | P.PN ---
Progress Note - Text Progress Note Date: 07/06/18 Orthopedic Spine Patient is a pleasant 88-year-old male who is seen at the bedside following L3- 4 and L4-5 laminectomy laminectomy and decompression with placement of Coflex interlaminar stabilization device performed yesterday. Patient states they are doing ok postsurgically. Patient has some difficulty with mobilization and require some help to ambulate to the restroom. He has only voided approximately 400 mL postoperatively. He iwas seen by medicine this morning who is planning for a bladder scan. Patient states he feels he is voiding but does not feel he is voiding fully. He has eaten some food postoperatively but does not feel he is much of an appetite. He continues to have some weakness of the right lower extremity. He is able to move his legs independently in bed but slowly with the right lower extremity. Currently does not complain of nausea, vomiting, fever, or chills. Patient states pain has been adequately controlled. He has a medical history which includes hypertension and hyperlipidemia. Physical Exam Laminectomy/Discectomy: Status post surgical day number 1 Patient is awake, alert, and oriented 3 Vital signs stable Good chest excursion with deep inspiration and expiration Abdomen soft nontender Dorsiflexion, plantarflexion, and extensor hallucis longus positive sustained bilaterally Weakness with performing hip flexion on the right Able to perform hip flexion on the left without difficulty Pneumatic cuffs intact bilateral lower extremities No signs or symptoms of DVT; no calf pain Dressing is clean, dry, and intact; no erythema, purulence, or signs of infection Assessment: Status Post L3-4 and L4-5 laminectomy and decompression with Coflex interlaminar stabilization device placement Low back pain Right lower extremity weakness Urinary retention Medical history of hypertension and hyperlipidemia Plan: 1. Ambulate as tolerated; work with Physical Therapy to increase mobility and ambulation 2. Continue Pain control with oral medications 3. Medical management can continue to manage patient for patient's other medical issues including urinary retention 4. We will continue to follow the patient closely; if patient is able to improve throughout the day and his urinary output improved, we will plan for discharge home as early as tomorrow, 07/07/2018 5. Patient can follow-up with Wilfredo Washington PA-C or Dr. Ronald Slaughter at [facility] in 2-3 weeks following discharge
[2018-07-06] MEDS: LACTATED RINGERS 1,000 ML IV SCH (13:26)
[2018-07-06] MEDS: HYDROmorphone 1 MG/ML 1 ML SYRINGE IVP PRN ×2 (14:07→19:54)
[2018-07-07] MEDS: CLINDAMYCIN 600 MG in DEXTROSE 5% IN WATER 50 ML IVPB SCH ×6 (00:15→15:28)
[2018-07-07] MEDS: HYDROcodone/APAP 5-325MG 1 EACH TAB PO PRN ×5 (00:50→21:38)
--- NOTE | 2018-07-07 05:21 | PN ---
PROGRESS NOTE CHIEF COMPLAINT: Re-evaluation. HISTORY OF PRESENT ILLNESS: This 88-year-old was admitted to the hospital after surgery for the lumbosacral area. The patient has had some difficulty in urinating. He has had frequency and urgency. The patient does not seem to be emptying his bladder too well. Recommend that he be scanned and if has more than 200 residual to have a straight cath. The patient otherwise is feeling relatively well. He still has pain in the leg. The patient reassured he is to give some time. He has a history of hypertension and paroxysmal atrial fibrillation. At present, he is in sinus rhythm. REVIEW OF SYSTEMS: NEURO: Denies any headaches, dizziness. PSYCH: No anxiety. CARDIAC: No chest pain, angina, palpitation. RESPIRATORY: Denies shortness of breath, cough. GI: No nausea, vomiting, abdominal pain, diarrhea. : No symptoms of dysuria or hematuria. EXTREMITIES: Some pain in the right leg, also lower back pain. CONSTITUTIONAL: No fever or chills. PHYSICAL EXAMINATION: Pleasant gentleman in no distress. VITAL SIGNS: Temperature 97.7, pulse 75, respirations 16, blood pressure 167/73, pulse ox 94% on room air. HEENT: Normocephalic. NECK: No JVD. CHEST: Clear to auscultation. CARDIAC: Normal S1, S2 with no gallops or murmurs. Rhythm is regular. ABDOMEN: Soft. Bowel sounds present. Extremities reveal no edema. Good pulses both upper and lower extremities. NEUROLOGIC: Awake, alert, oriented with well-coordinated movements upper extremities. The patient has been up to the bathroom with help and a walker. LABORATORY ASSESSMENT: None. ASSESSMENT: 1. Status post lumbar surgery. 2. Hypertension. 3. History of paroxysmal atrial fibrillation. 4. Some voiding difficulties with history of benign prostatic hypertrophy. PLAN: Continue present medical regimen. Patient's condition discussed with the patient. Prognosis is guarded. May require a catheter, straight cath, if he is not able to void. MMODL / IJN: [id number] /
[2018-07-07] MEDS: LOSARTAN 50 MG TAB PO SCH (09:14)
--- NOTE | 2018-07-07 12:56 | P.PN ---
Progress Note - Text Progress Note Date: 07/07/18 Orthopedic Spine: Patient is a pleasant 88-year-old male who is seen at the bedside following L3- 4 and L4-5 laminectomy laminectomy and decompression with placement of Coflex interlaminar stabilization device performed Thursday. Patient states he is doing better today postsurgically. He has been able to work with physical therapy to increase mobility and ambulation. He has had improvement in urinary retention and states he is urinating more normally. He is able to eat and drink without difficulty but continues to have decreased appetite postoperatively. He continues to have some weakness of the right lower extremity. He is able to move his legs independently in bed but slowly with the right lower extremity. Currently does not complain of nausea, vomiting, fever, or chills. Patient states pain has been adequately controlled. Has continued to require IV and oral medications for pain but feels his pain is improving. He has a medical history which includes hypertension and hyperlipidemia. Physical Exam Laminectomy/Discectomy: Status post surgical day number 2 Patient is awake, alert, and oriented 3 Vital signs stable Good chest excursion with deep inspiration and expiration Abdomen soft nontender Dorsiflexion, plantarflexion, and extensor hallucis longus positive sustained bilaterally Weakness with performing hip flexion on the right Able to perform hip flexion on the left without difficulty Pneumatic cuffs intact bilateral lower extremities No signs or symptoms of DVT; no calf pain Dressing is clean, dry, and intact; no erythema, purulence, or signs of infection Assessment: Status Post L3-4 and L4-5 laminectomy and decompression with Coflex interlaminar stabilization device placement Low back pain Right lower extremity weakness Urinary retention Medical history of hypertension and hyperlipidemia Plan: 1. Ambulate as tolerated; work with Physical Therapy to increase mobility and ambulation 2. Continue Pain control with oral medications; we will plan to wean off IV Toradol in anticipation for discharge home as early as tomorrow 3. Medical management can continue to manage patient for patient's other medical issues including urinary retention which has been improving 4. We will continue to follow the patient closely; if patient is able to continue to improve and his pain is able to be controlled with oral medications , we will plan for discharge home as early as tomorrow, 07/08/2018 5. Patient can follow-up with Wilfredo Washington PA-C or Dr. Ronald Slaughter at [facility] in 2-3 weeks following discharge
[2018-07-07] MEDS: SODIUM CHLORIDE 0.9% 1,000 ML IV SCH (13:13)
[2018-07-07] MEDS: LACTATED RINGERS 1,000 ML IV SCH (17:08)
--- NOTE | 2018-07-07 21:53 | PN ---
PROGRESS NOTE ATTENDING PHYSICIAN: Dr. Slaughter. CONSULTING PHYSICIAN: Dr. Joel Ryan. CHIEF COMPLAINT: Re-evaluation. HISTORY OF PRESENT ILLNESS: This is an 88-year-old gentleman who is status post lumbar surgery. The patient is having significant pain still. Apparently called his early this morning, 7 o'clock, telling her to come into the hospital right away. The patient, according to the nursing staff, got somewhat confused with Dilaudid. The patient however at my time of my evaluation is totally oriented to his usual status. The patient had [place] about an hour prior to this visit and stated his pain was better. The patient does have a history of paroxysmal atrial fibrillation and hypertension. REVIEW OF SYSTEMS: Neuro: Denies any headaches or dizziness. Psych: No anxiety. Cardiac: No chest pain, angina or palpitations. Respiratory: Denies shortness of breath, cough. GI: No nausea, vomiting, abdominal pain, diarrhea. No bowel movement. : No symptoms of dysuria, hematuria. Does have some slowing of the stream and frequency. Extremities: Pain in the right leg and lower back. CONSTITUTIONAL: No fever or chills. PHYSICAL EXAMINATION: Pleasant gentleman at present in no distress. Vital signs reveals temperature 98.1, pulse 85, respirations 16, blood pressure 172/82, pulse ox 92% on room air. HEENT: Normocephalic. NECK: Supple. No JVD. CHEST: Clear to auscultation. Cardiac: Normal S1, S2 with no gallops, murmurs. Rhythm regular. ABDOMEN: Soft. Bowel sounds present. Extremities reveal no edema. Neurological: Awake, alert, oriented with well-coordinated movements both upper extremities. LABORATORY ASSESSMENT: None. ASSESSMENT: 1. Hypertension with mildly elevated blood pressure this morning. 2. History of paroxysmal atrial fibrillation, off anticoagulation at present. 3. Status post lumbar surgery. PLAN: The patient at present is stable. Continue present medical regimen. The patient's pain medications will be adjusted. The patient received Toradol 1 shot. We will check the patient's labs in the morning. The patient's condition is discussed with the patient and spouse and son. MMODL / IJN: [id number] /
[2018-07-08] MEDS: CLINDAMYCIN 600 MG in DEXTROSE 5% IN WATER 50 ML IVPB SCH ×8 (00:26→23:35)
[2018-07-08] MEDS: HYDROcodone/APAP 5-325MG 1 EACH TAB PO PRN ×5 (05:48→23:37)
[2018-07-08] MEDS: LOSARTAN 50 MG TAB PO SCH (08:36)
[2018-07-08] MEDS: SODIUM CHLORIDE 0.9% 1,000 ML IV SCH ×2 (08:37→15:05)
[2018-07-08 09:12] LABS: HCT 37.7 % (39.0-53.0); HGB 12.2 gm/dL (13.0-17.5); MCHC 32.5 g/dL (31.0-37.0); MCV 89.5 fL (80.0-100.0); Mean Platelet Volume 6.3; Platelet Count 360 k/uL (150-450); RBC 4.21 m/uL (4.30-5.90); RDW 15.2 % (11.5-15.5); WBC 19.3 k/uL (3.8-10.6)
[2018-07-08 09:17] LABS: Calcium 8.7 mg/dL (8.4-10.2); Potassium 4.4 mmol/L (3.5-5.1)
--- NOTE | 2018-07-08 09:21 | P.PN ---
Progress Note - Text Progress Note Date: 07/08/18 Postoperative day #3 Patient is seen and examined today at bedside. The patient has some pain around the surgical site as expected, but he is progressing more slowly been we would typically expect. He is somewhat fearful of his pain and his ability to get around on his own.. Pain is being controlled with medication. He has been able get up to the bathroom on his own with just standby assist. He is moving in bed adequately slowly due to his pain. He is not having nausea or vomiting. His legs are doing well. Physical Exam Afebrile with stable vital signs Abdomen is soft nontender. Chest has good excursion deep and space expiration The incision site is clean dry and intact. No erythema there is no purulence. There is some small drainage at the inferior aspect of this incision site without any purulence. There is no signal and swelling. Extremities have not had neurologic change from prior to surgery. He is able to dorsiflex plantarflex and perform EHL against resistance. His thigh and calf are soft nontender Calves and thighs were soft nontender without evidence of DVT. Assessment/Plan Postoperative day #3 status post decompression with intralaminar stabilization at L3 4 and L4 5 for his severe spinal stenosis and neurogenic claudication. Patient is progressing somewhat slowly from the surgery. He is a bit frail and it is taking some time to increase his mobility but he is doing decently and improving his activity adequately. We like to see him again further confidence with his mobility but I think he'll be able to be discharged home tomorrow, on Thursday. I discussed this with him at length today as well as with his son at bedside and staff and they are agreeable. We will continue to increase the patient's mobilization with therapy. Is okay for him to shower with waterproof dressing intact. We will continue pain control with oral or IV medications. We'll continue to follow patient closely.
[2018-07-08] MEDS: LACTATED RINGERS 1,000 ML IV SCH (15:05)
[2018-07-08] MEDS ORDERED: MAGNESIUM HYDROXIDE 2,400 MG/10 ML CUP PO PRN (18:58)
[2018-07-08 19:25] VITALS: RESP 18
--- NOTE | 2018-07-08 22:39 | PN ---
PROGRESS NOTE CHIEF COMPLAINT: Re-evaluation. HISTORY OF PRESENT ILLNESS: This 88-year-old gentleman was admitted to the hospital and has undergone back surgery. The patient is feeling better today. He has ambulated. He has pain but tolerable. The patient otherwise denies any major complaints. REVIEW OF SYSTEMS: NEURO: Denies any headaches, dizziness. PSYCH: No anxiety. CARDIAC: No chest pain, angina, palpitations. RESPIRATORY: Denies shortness of breath, cough, hemoptysis. GI: No nausea, vomiting, abdominal pain, diarrhea. : No symptoms of dysuria or hematuria. EXTREMITIES: No pain. CONSTITUTIONAL: No fever or chills. MUSCULOSKELETAL: Lower back pain. PHYSICAL EXAMINATION: VITAL SIGNS: Temperature 98.8, pulse 86, respirations 19, blood pressure 113/66, pulse ox 94% on room air. HEENT: Normocephalic. NECK: No JVD. CHEST: Clear to auscultation and percussion. CARDIAC: Normal S1, S2 with no gallops, murmurs, rubs. ABDOMEN: Soft. Bowel sounds present. Extremities reveal trace edema. NEUROLOGIC: Awake, alert, oriented with well-coordinated movements. Patient's incision over his lower back has a dressing. LABORATORY ASSESSMENT: White count 19.3, hemoglobin 12.2, sodium 127. ASSESSMENT: 1. Mild anemia. 2. 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 3. Hyponatremia. 4. Back pain. 5. Paroxysmal atrial fibrillation. PLAN: Continue present medical regimen. Patient's condition was discussed with the patient. Prognosis guarded. Condition was discussed with the spouse. Potential discharge. Upon discharge, patient's Eliquis could be resumed. MMODL / IJN: [id number] /
[2018-07-09] MEDS: HYDROcodone/APAP 5-325MG 1 EACH TAB PO PRN ×2 (03:28→07:47)
[2018-07-09] MEDS: LOSARTAN 50 MG TAB PO SCH (07:47)
--- NOTE | 2018-07-09 08:42 | P.DS ---
Providers Date of admission: 07/05/18 12:46 Expected date of discharge: 07/09/18 Attending physician: Rao Slaughter Consults: 07/05/18 18:09 Consult Physician Routine Consulting Provider: Ben Ryan Consult Reason/Comments: Medical management Do you want consulting provider notified?: Yes Primary care physician: Ben Ryan - Discharge Diagnosis(es) (1) Lumbar spinal stenosis Current Visit: Yes Status: Acute (2) Low back pain Current Visit: Yes Status: Acute (3) DDD (degenerative disc disease), lumbar Current Visit: Yes Status: Acute (4) Neurogenic claudication due to lumbar spinal stenosis Current Visit: Yes Status: Acute (5) Lower extremity weakness Current Visit: Yes Status: Acute (6) S/P laminectomy Current Visit: Yes Status: Acute (7) Hypertension Current Visit: Yes Status: Acute (8) Hyperlipidemia Current Visit: Yes Status: Acute Hospital Course: This is a pleasant 88-year-old male who presented with L3-4 and L4-5 spinal canal stenosis, neurogenic claudication, bilateral lower extremity weakness, low back pain, and lumbar degenerative disc disease who failed outpatient conservative therapy. He was admitted for an L3-4 and L4-5 laminectomy and decompression with placement of interlaminar stabilization device. Initially he had been progressing quite slowly postoperatively. He has had improvement since yesterday. He is been able to ambulate better. He does have a wheeled walker to aid in ambulation. He has been working with physical therapy to increase mobilization. He is ready for discharge home today. Condition on day of discharge stable. Patient will be discharged home. Patient was cleared preoperatively for surgery by Dr. Ryan. Patient has been discussed in detail with Dr. Ryan this morning who states the patient is clear for discharge from a medical standpoint. Patient currently denies any nausea, vomiting, fever, or chills. Patient is eating and voiding freely without difficulty. Patient may shower Tegaderm dressing intact. Patient may remove Tegaderm dressing in 2 days and shower without a dressing at that time. Patient should keep Steri- Strips intact and allow them to fall off naturally. Patient should refrain from driving until at least after their first follow-up appointment in the office. Patient should avoid excessive bending, lifting, and twisting; no lifting greater than 10 pounds. MAPS has been reviewed today, 07/09/2018, with an overall overdosed risk score of 230. An "Opiod Start Talking" form has been signed by the patient and myself. Prescription is written for [place] 7.5 mg/325 mg 1 tab every 6 hours as needed for pain, dispense #28 at discharge. Patient was previously prescribed this medication by Dr. Flores. Per Dr. Ryan, patient may resume all other home medications. Physical Exam on day of discharge: Patient is awake, alert, and oriented 3 Vital signs stable Good chest excursion with deep inspiration and expiration Abdomen soft nontender No signs or symptoms of DVT; no calf pain Extensor hallucis longus, plantarflexion, and dorsiflexion positive sustained bilateral lower extremities Active range of motion bilateral lower extremities with some weakness with active evidence performed against resistance Incision is clean, dry, and intact; no erythema, purulence, or signs of infection Tegaderm dressing and non-stick Telfa intact Procedures: L3-4 and L4-5 laminectomy and decompression with placement of interlaminar stabilization device Patient Condition at Discharge: Stable Plan - Discharge Summary Discharge Rx Participant: Yes New Discharge Prescriptions: New HYDROcodone/APAP 7.5-325MG [[place] 7.5-325] 1 each PO Q6HR PRN #28 tab PRN Reason: Pain No Action Atorvastatin [Lipitor] 10 mg PO HS Losartan Potassium [Cozaar] 100 mg PO DAILY Apixaban [Eliquis] 5 mg PO BID Hydrochlorothiazide 12.5 mg PO DAILY HYDROcodone/APAP 7.5-325MG [[place] 7.5-325] 1 tab PO Q6HR PRN PRN Reason: Pain Bisacodyl [Dulcolax] 10 mg RECTAL DAILY PRN PRN Reason: Constipation Discharge Medication List Atorvastatin [Lipitor] 10 mg PO HS 12/03/14 [History] Apixaban [Eliquis] 5 mg PO BID 12/31/17 [History] Hydrochlorothiazide 12.5 mg PO DAILY 12/31/17 [History] Losartan Potassium [Cozaar] 100 mg PO DAILY 12/31/17 [History] Bisacodyl [Dulcolax] 10 mg RECTAL DAILY PRN 06/28/18 [History] HYDROcodone/APAP 7.5-325MG [[place] 7.5-325] 1 tab PO Q6HR PRN 06/28/18 [History] HYDROcodone/APAP 7.5-325MG [[place] 7.5-325] 1 each PO Q6HR PRN #28 tab 07/09/18 [ Rx] Follow up Appointment(s)/Referral(s): Ben Ryan MD [Primary Care Provider] - 07/19/18 4:30 pm Rao Slaughter DO [Doctor of Osteopathic Medicine] - 07/20/18 9:00 am [facility], [NON-STAFF] - As Needed Activity/Diet/Wound Care/Special Instructions: 1. Patient may shower with Tegaderm dressing intact. 2. Patient may remove Tegaderm dressing in 3 days and shower without a dressing at that time. 3. Patient should keep Steri-Strips intact and allow them to fall off naturally. 4. Patient should refrain from driving until at least after their first follow- up appointment in the office. 5. Patient should avoid excessive bending, twisting, and lifting; no lifting greater than 10 pounds 6. Take medications as prescribed 7. Do not soak in tub Discharge Disposition: HOME SELF-CARE
[2018-07-09] MEDS: CLINDAMYCIN 600 MG in DEXTROSE 5% IN WATER 50 ML IVPB SCH ×2 (08:57)
[2018-07-09] MEDS ORDERED: APIXABAN 5 MG TAB PO SCH (09:00)
[2018-07-09 09:48] VITALS: BP 156/86; PULSE 72; TEMP 98.9
--- NOTE | 2018-07-09 20:16 | PN ---
PROGRESS NOTE ATTENDING PHYSICIAN: Dr. Slaughter CONSULTING PHYSICIAN: Dr. Saurav Ryan. CHIEF COMPLAINT: Re-evaluation. HISTORY OF PRESENT ILLNESS: This is an 88-year-old gentleman who was admitted to the hospital and undergone lumbar surgery. The patient says he feels very well today. He has pain in the leg is resolved. He still has some back pain at the surgical site, but it is tolerable. He has been up and walking. He is using the walker. No associated symptoms of nausea, vomiting. Has some constipation and was given milk of Mag with a good bowel movement. The patient has no urinary symptoms. Advised patient to continue using milk of magnesia as needed at home. Will resume patient's Eliquis. REVIEW OF SYSTEMS: NEURO: Denies any headaches, dizziness. PSYCH: No anxiety, depression. CARDIAC: No chest pain, angina, palpitation. RESPIRATORY: No shortness of breath, cough, hemoptysis. GI: No nausea, vomiting, abdominal pain, diarrhea. Had a bowel movement after milk of Mag. : No symptoms of dysuria, hematuria. Improved frequency. EXTREMITIES: No pain. Has some edema at the ankles. Still has some lumbar pain. CONSTITUTIONAL: No fever, chills. PHYSICAL EXAMINATION: VITAL SIGNS: Temperature 98.9, pulse 72, respirations 18, blood pressure 156/86, pulse ox 92% on 2 L. HEENT: Normocephalic. NECK: Supple. No JVD. CHEST: Clear to auscultation and percussion. CARDIAC: Normal S1, S2 with no gallops or murmurs. Regular rhythm. ABDOMEN: Soft. Bowel sounds normal. EXTREMITIES: Reveal 1+ edema at the ankles. NEUROLOGICALLY: Awake, alert, oriented with well-coordinated movements both upper or lower extremities. LABORATORY ASSESSMENT: None new. ASSESSMENT: 1. Hypertension with mildly elevated blood pressure. 2. History of paroxysmal atrial fibrillation. 3. Leukocytosis. 4. Status post back surgery. PLAN: Continue present medical regimen. Patient's condition discussed with the patient. Upon discharge will resume his losartan with hydrochlorothiazide and Eliquis. The patient will follow up in outpatient. Patient's condition discussed with the patient and son and the physician floral assistant from Orthopedics. MMODL / IJN: [id number] /
== END 2018-07-09 10:25 | disposition home health service (06) | DRG 460 ==
LOC: 2ORMAIN 12:46 → 4SSUR 18:24
PROVIDERS: ADMIT Orthopaedic Surgery Orthopaedic Surgery of the Spine; ATTEND Orthopaedic Surgery Orthopaedic Surgery of the Spine
PROC: 0SG10JJ Fusion of 2 or more Lumbar Vertebral Joints with Synthetic Substitute, Posterior Approach, Anterior Column, Open Approach (ICD-10-PCS; principal; 2018-07-05 14:45)
DX: M51.16 Intervertebral disc disorders with radiculopathy, lumbar region (principal); E87.1 Hypo-osmolality and hyponatremia; C85.10 Unspecified B-cell lymphoma, unspecified site; M48.062 Spinal stenosis, lumbar region with neurogenic claudication; D64.9 Anemia, unspecified; D72.820 Lymphocytosis (symptomatic); E78.5 Hyperlipidemia, unspecified; I10 Essential (primary) hypertension; I48.0 Paroxysmal atrial fibrillation; K59.00 Constipation, unspecified; M19.90 Unspecified osteoarthritis, unspecified site; N40.1 Benign prostatic hyperplasia with lower urinary tract symptoms; R33.8 Other retention of urine; Z80.0 Family history of malignant neoplasm of digestive organs; Z82.49 Family history of ischemic heart disease and other diseases of the circulatory system; Z79.891 Long term (current) use of opiate analgesic; Z79.899 Other long term (current) drug therapy; Z88.0 Allergy status to penicillin; Z88.2 Allergy status to sulfonamides; Z90.49 Acquired absence of other specified parts of digestive tract
CPT/HCPCS: 72100; 80048; 85027; 86850; 86900; 86901

== ENCOUNTER 2019-12-12 20:37 | Inpatient (IN) | payer MEDICARE, BC ==
--- NOTE | 2019-12-12 20:45 | ED ---
GI Bleed HPI - General Stated complaint: Rectal Bleed Time Seen by Provider: 12/12/19 20:37 Source: patient, EMS, RN notes reviewed, old records reviewed Mode of arrival: EMS - History of Present Illness Initial comments: This 89-year-old male history of prior history of hemorrhoidal bleeding with her Eliquis right now he stopped at or days ago resumed last night who had bright red blood per rectum today he felt lightheaded and dizzy. EMS was called he had apparently is presyncopal episode and initial blood pressure 80/40 he did improve to over 100 after a fluid challenge. He feels much better and only had no abdominal pain no focal deficits no headache no other symptoms reported at this time. MD complaint: gross hematochezia - Related Data Home Medications Medication Instructions Recorded Confirmed Atorvastatin [Lipitor] 10 mg PO HS 12/03/14 07/05/18 Apixaban [Eliquis] 5 mg PO BID 12/31/17 07/05/18 Hydrochlorothiazide 12.5 mg PO DAILY 12/31/17 07/05/18 Losartan Potassium [Cozaar] 100 mg PO DAILY 12/31/17 07/05/18 Bisacodyl [Dulcolax] 10 mg RECTAL DAILY PRN 06/28/18 07/05/18 HYDROcodone/APAP 7.5-325MG [[place] 1 tab PO Q6HR PRN 06/28/18 07/05/18 7.5-325] Previous Rx's Medication Instructions Recorded HYDROcodone/APAP 7.5-325MG [[place] 1 each PO Q6HR PRN #28 tab 07/09/18 7.5-325] Allergies Allergy/AdvReac Type Severity Reaction Status Date / Time Penicillins Allergy Unknown Verified 12/12/19 20:40 Sulfa (Sulfonamide Allergy Unknown Verified 12/12/19 20:40 Antibiotics) Review of Systems ROS Statement: Those systems with pertinent positive or pertinent negative responses have been documented in the HPI. ROS Other: All systems not noted in ROS Statement are negative. Past Medical History Past Medical History: Atrial Fibrillation, Hyperlipidemia, Hypertension Additional Past Medical History / Comment(s): DDD, spinal stenosis with bone spur, sciatica, pain clinic epidural injections December 01, 2017 History of Any Multi-Drug Resistant Organisms: None Reported Past Surgical History: Appendectomy, Cholecystectomy, Joint Replacement Additional Past Surgical History / Comment(s): josé luis cataract surgery lens implant , Right knee replacement Past Anesthesia/Blood Transfusion Reactions: No Reported Reaction Smoking Status: Unknown if ever smoked - Past Family History Brother(s) Family Medical History: Cancer Additional Family Medical History / Comment(s): colon cancer General Exam - General Exam Comments Initial Comments: This is a well-developed well-nourished awake alert oriented 3 male he does appear pale General appearance: alert, in no apparent distress Head exam: Present: atraumatic, normocephalic, normal inspection Eye exam: Present: normal appearance, PERRL, EOMI. Absent: scleral icterus, conjunctival injection, periorbital swelling ENT exam: Present: normal exam, mucous membranes moist Neck exam: Present: normal inspection, full ROM, other (No stridor JVD or bruits). Absent: tenderness, meningismus, lymphadenopathy Respiratory exam: Present: normal lung sounds bilaterally. Absent: respiratory distress, wheezes, rales, rhonchi, stridor Cardiovascular Exam: Present: regular rate, normal rhythm, normal heart sounds. Absent: systolic murmur, diastolic murmur, rubs, gallop, clicks GI/Abdominal exam: Present: soft, normal bowel sounds. Absent: distended, tenderness, guarding, rebound, rigid Extremities exam: Present: normal inspection, full ROM, normal capillary refill. Absent: tenderness, pedal edema, joint swelling, calf tenderness Back exam: Present: normal inspection Neurological exam: Present: alert, oriented X3, CN II-XII intact Psychiatric exam: Present: normal affect, normal mood Skin exam: Present: warm, dry, intact, pallor. Absent: normal color, rash Course Vital Signs 12/12/19 12/12/19 12/12/19 20:40 21:30 22:32 Temperature 97.6 F Pulse Rate 77 73 73 Respiratory 18 18 16 Rate Blood Pressure 114/64 105/69 102/66 O2 Sat by Pulse 99 98 99 Oximetry Medical Decision Making - Medical Decision Making I did discuss findings with patient family patient be admitted case is discussed with Dr. Seay. Patient does have evidence of a GI bleed with anemia. GI will be consulted. - Lab Data Result diagrams: 12/12/19 20:55 12/12/19 20:55 Lab Results 12/12/19 12/12/19 12/12/19 Range/Units 20:55 20:55 20:55 WBC 18.0 H (3.8-10.6) k/uL RBC 3.60 L (4.30-5.90) m/uL Hgb 10.7 L (13.0-17.5) gm/dL Hct 33.1 L (39.0-53.0) % MCV 91.9 (80.0-100.0) fL MCH 29.7 (25.0-35.0) pg MCHC 32.4 (31.0-37.0) g/dL RDW 14.2 (11.5-15.5) % Plt Count 270 (150-450) k/uL Neutrophils % (Manual) 37 % Lymphocytes % (Manual) 58 % Monocytes % (Manual) 4 % Eosinophils % (Manual) 1 % Neutrophils # (Manual) 6.66 (1.3-7.7) k/uL Lymphocytes # (Manual) 10.44 H (1.0-4.8) k/uL Monocytes # (Manual) 0.72 (0-1.0) k/uL Eosinophils # (Manual) 0.18 (0-0.7) k/uL Nucleated RBCs 0 (0-0) /100 WBC Manual Slide Review Performed Reactive Lymphocytes Present Poikilocytosis (manual Present APTT 22.0 (22.0-30.0) sec Sodium 130 L (137-145) mmol/L Potassium 3.9 (3.5-5.1) mmol/L Chloride 96 L (98-107) mmol/L Carbon Dioxide 26 (22-30) mmol/L Anion Gap 8 mmol/L BUN 16 (9-20) mg/dL Creatinine 1.00 (0.66-1.25) mg/dL Est GFR (CKD-EPI)AfAm 78 (>60 ml/min/1.73 sqM) Est GFR (CKD-EPI)NonAf 67 (>60 ml/min/1.73 sqM) Glucose 115 H (74-99) mg/dL Calcium 7.6 L (8.4-10.2) mg/dL Magnesium 1.8 (1.6-2.3) mg/dL Total Bilirubin 0.3 (0.2-1.3) mg/dL AST 25 (17-59) U/L ALT 13 (4-49) U/L Alkaline Phosphatase 45 (38-126) U/L Creatine Kinase 106 (55-170) U/L Troponin I (0.000-0.034) ng/mL Total Protein 5.1 L (6.3-8.2) g/dL Albumin 2.7 L (3.5-5.0) g/dL Blood Type Blood Type Recheck Bld Type Recheck Status Antibody Screen Spec Expiration Date 12/12/19 12/12/19 Range/Units 20:55 20:55 WBC (3.8-10.6) k/uL RBC (4.30-5.90) m/uL Hgb (13.0-17.5) gm/dL Hct (39.0-53.0) % MCV (80.0-100.0) fL MCH (25.0-35.0) pg MCHC (31.0-37.0) g/dL RDW (11.5-15.5) % Plt Count (150-450) k/uL Neutrophils % (Manual) % Lymphocytes % (Manual) % Monocytes % (Manual) % Eosinophils % (Manual) % Neutrophils # (Manual) (1.3-7.7) k/uL Lymphocytes # (Manual) (1.0-4.8) k/uL Monocytes # (Manual) (0-1.0) k/uL Eosinophils # (Manual) (0-0.7) k/uL Nucleated RBCs (0-0) /100 WBC Manual Slide Review Reactive Lymphocytes Poikilocytosis (manual APTT (22.0-30.0) sec Sodium (137-145) mmol/L Potassium (3.5-5.1) mmol/L Chloride (98-107) mmol/L Carbon Dioxide (22-30) mmol/L Anion Gap mmol/L BUN (9-20) mg/dL Creatinine (0.66-1.25) mg/dL Est GFR (CKD-EPI)AfAm (>60 ml/min/1.73 sqM) Est GFR (CKD-EPI)NonAf (>60 ml/min/1.73 sqM) Glucose (74-99) mg/dL Calcium (8.4-10.2) mg/dL Magnesium (1.6-2.3) mg/dL Total Bilirubin (0.2-1.3) mg/dL AST (17-59) U/L ALT (4-49) U/L Alkaline Phosphatase (38-126) U/L Creatine Kinase (55-170) U/L Troponin I <0.012 (0.000-0.034) ng/mL Total Protein (6.3-8.2) g/dL Albumin (3.5-5.0) g/dL Blood Type A Positive Blood Type Recheck A Pos Bld Type Recheck Status No Antibody Screen NEGATIVE Spec Expiration Date 12/15/2019 - 4490 - EKG Data -: EKG Interpreted by Me EKG shows normal: sinus rhythm EKG Comments: Sinus rhythm a 78. Interval 246 QRS 90 QT since QTC 392/446 st-t wave changes - Radiology Data Radiology results: report reviewed (I did review the imaging and report no acute findings), image reviewed Disposition Clinical Impression: Hematochezia, GI bleed, Anemia, Hypotensive episode Disposition: ADMITTED IP TO THIS [facility] Condition: Fair Referrals: Ben Ryan MD [Primary Care Provider] - 1-2 days
[2019-12-12 21:10] LABS: HCT 33.1 % (39.0-53.0); HGB 10.7 gm/dL (13.0-17.5); MCH 29.7 pg (25.0-35.0); MCHC 32.4 g/dL (31.0-37.0); MCV 91.9 fL (80.0-100.0); Mean Platelet Volume 7.1; Platelet Count 270 k/uL (150-450); RDW 14.2 % (11.5-15.5)
[2019-12-12 21:21] LABS: Albumin 2.7 g/dL (3.5-5.0); Calcium 7.6 mg/dL (8.4-10.2); Magnesium 1.8 mg/dL (1.6-2.3); Potassium 3.9 mmol/L (3.5-5.1); Total Bilirubin 0.3 mg/dL (0.2-1.3); Total Protein 5.1 g/dL (6.3-8.2)
--- NOTE | 2019-12-12 21:31 | XR ---
EXAMINATION TYPE: XR KUB portable DATE OF EXAM: 12/12/2019 9:15 PM CLINICAL HISTORY: GI bleed. TECHNIQUE: Two supine KUB images of the abdomen are obtained. COMPARISON: CT abdomen and pelvis July 02, 2018. FINDINGS: Scattered gas is seen in non-distended stomach as well as scattered small and large bowel l oops. Lung bases are clear. Surgical change lower lumbar spine is present. There is disc space narrow ing with endplate sclerosis L2-L3 and left L3-L4 levels. IMPRESSION: Overall nonobstructive bowel gas pattern.
[2019-12-12 21:44] LABS: Eosinophils # (M) 0.18 k/uL (0-0.7); Lymphocytes # (M) 10.44 k/uL (1.0-4.8); Monocytes # (M) 0.72 k/uL (0-1.0); Neutrophils # (M) 6.66 k/uL (1.3-7.7); Neutrophils % (M) 37 %; Nucleated Red Blood Cells 0 /100 WBC (0-0); Total Cells Counted 100
[2019-12-12 21:45] LABS: Poikilocytosis (M) Present
[2019-12-12 21:46] LABS: Reactive Lymphocytes Present
[2019-12-12] MEDS ORDERED: NALOXONE 0.4 MG/ML 1 ML VIAL IV PRN (22:49)
[2019-12-12] MEDS: SODIUM CHLORIDE 0.9% 1,000 ML IV SCH (23:06)
--- NOTE | 2019-12-13 01:12 | P.HPIM ---
History of Present Illness H&P Date: 12/13/19 The patient is an 89-year-old male with a PMH of A. fib (on Eliquis), hypertension, hyperlipidemia, and hemorrhoids who presented to the ED with complaints of blood in stools. The patient reports that he has been taking Eliquis for several years, and roughly 5 nights ago had a bloody stool. The pa nenita subsequently contacted his PMD, Dr. Ryan, who advised him to stop taking the Eliquis. The patient then had no further episodes of bloody stools until he resumed his Eliquis on the night of 12/10, after which she had 2 large bright red bloody stools throughout the day on 12/11. The patient notes that his last dose of Eliquis was on the morning of 12/11. He notes his last bloody bowel movement was at 5 PM on 12/11. Around that time, he developed dizziness, and lightheadedness, and had multiple pre-syncopal episodes which sitting in a couch in his living room, witnessed by his who subsequently activated EMS. The patient recalls the episode, and denied any preceding chest discomfort, shortness of breath, nausea, or vomiting. He also denied fever, chills, cough, recent travel, or sick contacts. At time of the interview, he notes that he feels well and does not have any complaints. He underwent an extensive evaluation in the emergency room, with a KUB that was unremarkable. evaluation revealed WBC count of 18.0, hemoglobin 10.7, down from 15, platelets 270, sodium 130, potassium 3.9, BUN 16, creatinine 1.00, and a glucose of 115. The patient is admitted to the medicine service for further management of GI bleeding. Review of Systems Pertinent positives and negatives as discussed in HPI, a complete review of systems was performed and all other systems are negative. Past Medical History Past Medical History: Atrial Fibrillation, Hyperlipidemia, Hypertension Additional Past Medical History / Comment(s): DDD, spinal stenosis with bone spur, sciatica, pain clinic epidural injections December 01, 2017 History of Any Multi-Drug Resistant Organisms: None Reported Past Surgical History: Appendectomy, Cholecystectomy, Joint Replacement Additional Past Surgical History / Comment(s): josé luis cataract surgery lens implant, Right knee replacement Past Anesthesia/Blood Transfusion Reactions: No Reported Reaction Past Psychological History: No Psychological Hx Reported Smoking Status: Unknown if ever smoked Past Alcohol Use History: None Reported Additional Past Alcohol Use History / Comment(s): smoked 10 years <1/2ppd quit 1958 Past Drug Use History: None Reported - Past Family History Brother(s) Family Medical History: Cancer Additional Family Medical History / Comment(s): colon cancer Medications and Allergies Home Medications Medication Instructions Recorded Confirmed Type Atorvastatin [Lipitor] 10 mg PO HS 12/03/14 12/12/19 History Hydrochlorothiazide 12.5 mg PO DAILY 12/31/17 12/12/19 History Losartan Potassium [Cozaar] 100 mg PO DAILY 12/31/17 12/12/19 History HYDROcodone/APAP 7.5-325MG [[place] 1 tab PO Q6HR PRN 06/28/18 12/12/19 History 7.5-325] Garlic 1 tab PO DAILY 12/12/19 12/12/19 History Allergies Allergy/AdvReac Type Severity Reaction Status Date / Time Penicillins Allergy Unknown Verified 12/12/19 23:18 Sulfa (Sulfonamide Allergy Unknown Verified 12/12/19 23:18 Antibiotics) Physical Exam Vitals: Vital Signs Temp Pulse Pulse Resp BP BP Pulse Ox 12/12/19 23:55 98.0 F 82 14 131/75 95 12/12/19 22:32 73 16 102/66 99 12/12/19 21:30 73 18 105/69 98 12/12/19 20:40 97.6 F 77 18 114/64 99 Intake and Output 12/12/19 12/12/19 12/13/19 14:59 22:59 06:59 Other: Voiding Method Toilet Weight 77.111 kg 77.111 kg General: non toxic, no distress, appears at stated age, normal weight Derm: no unusual rashes/lesions no unusual ecchymoses, warm, dry Head: atraumatic, normocephalic, symmetric Eyes: EOMI, no lid lag, anicteric sclera, pupils equal round reactive to light ENT: Nose and ears atraumatic, no thrush, no pharyngeal erythema Neck: No thyromegaly, no cervical lymphadenopathy, trachea midline, supple Mouth: no lip lesion, mucus membranes moist Cardiovascular: S1S2 reg, no murmur, positive posterior tibial pulse bilateral, no edema, capillary refill less than 2 seconds Lungs: CTA bilateral, no rhonchi, no rales , no accessory muscle use Abdominal: soft, nontender to palpation, no guarding, no appreciable organomegaly, normal bowel sounds Ext: no gross muscle atrophy, muscle strength 5 out of 5 in all 4 extremities grossly, no contractures, Neuro: CN II-XI grossly intact, light touch intact all 4 extremities, finger to nose within normal limits, Psych: Alert, oriented, appropriate affect Results CBC & Chem 7: 12/12/19 20:55 12/12/19 20:55 Labs: Abnormal Lab Results - Last 24 Hours (Table) 12/12/19 12/12/19 12/12/19 Range/Units 20:55 20:55 20:55 WBC 18.0 H (3.8-10.6) k/uL RBC 3.60 L (4.30-5.90) m/uL Hgb 10.7 L (13.0-17.5) gm/dL Hct 33.1 L (39.0-53.0) % Lymphocytes # (Manual) 10.44 H (1.0-4.8) k/uL Sodium 130 L (137-145) mmol/L Chloride 96 L (98-107) mmol/L Glucose 115 H (74-99) mg/dL Calcium 7.6 L (8.4-10.2) mg/dL Total Protein 5.1 L (6.3-8.2) g/dL Albumin 2.7 L (3.5-5.0) g/dL Crossmatch See Detail Thrombosis Risk Factor Assmnt - Choose All That Apply Any of the Below Risk Factors Present?: No Other Risk Factors: No Other congenital or acquired thrombophilia - If yes, enter type in comment: No Thrombosis Risk Factor Assessment Level: Very Low Risk Assessment and Plan Plan: Acute blood loss anemia from GI bleeding -Monitor CBC every 6 hourly -GI consult -Hold off on Eliquis -IV Protonix -Nothing by mouth for now -IV fluids Leukocytosis -No signs of active infection at this time -Likely secondary to acute stress Hyponatremia, 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
[2019-12-13 05:45] LABS: Potassium 4.4 mmol/L (3.5-5.1)
[2019-12-13 05:49] LABS: HCT 30.9 % (39.0-53.0); HGB 10.2 gm/dL (13.0-17.5); MCH 30.4 pg (25.0-35.0); MCV 92.2 fL (80.0-100.0); Platelet Count 220 k/uL (150-450); RBC 3.35 m/uL (4.30-5.90); RDW 14.3 % (11.5-15.5); WBC 17.1 k/uL (3.8-10.6)
[2019-12-13] MEDS: SODIUM CHLORIDE 0.9% 1,000 ML IV SCH ×3 (06:30→20:08)
[2019-12-13 07:03] LABS: Nucleated Red Blood Cells 0 /100 WBC (0-0); Total Cells Counted 100
[2019-12-13 07:04] LABS: Anisocytosis (M) Present
[2019-12-13 08:20] LABS: Lymphocytes # (M) 10.26 k/uL (1.0-4.8); Monocytes # (M) 1.03 k/uL (0-1.0); Neutrophils # (M) 5.81 k/uL (1.3-7.7); Neutrophils % (M) 34 %
[2019-12-13 08:21] LABS: Poikilocytosis (M) Present
[2019-12-13] MEDS: PANTOPRAZOLE 40 MG/10 ML VIAL IV SCH ×2 (08:50→20:08)
[2019-12-13] MEDS ORDERED: ONDANSETRON 4 MG/2 ML VIAL IVP PRN (11:13)
[2019-12-13] MEDS ORDERED: ACETAMINOPHEN TAB 325 MG TAB PO PRN (11:13)
[2019-12-13 12:37] LABS: HCT 30.4 % (39.0-53.0); HGB 10.1 gm/dL (13.0-17.5); MCH 30.5 pg (25.0-35.0); MCHC 33.1 g/dL (31.0-37.0); MCV 92.1 fL (80.0-100.0); Mean Platelet Volume 7.1; Platelet Count 234 k/uL (150-450); RDW 14.3 % (11.5-15.5); WBC 16.3 k/uL (3.8-10.6)
--- NOTE | 2019-12-13 19:41 | P.PN ---
Progress Note - Text Progress Note Date: 12/13/19 Hospitalist Interval Note Patient seen and examined at bedside. Still with drooling and inability to swallow. Vital signs reviewed General: ill appearing, no distress, appears at stated age Derm: warm, dry Head: atraumatic, normocephalic, symmetric Eyes: EOMI, no lid lag, anicteric sclera Mouth: no lip lesion, mucus membranes moist, drooling Cardiovascular: S1S2 irreg, no murmur, positive posterior tibial pulse bilateral, ] Neuro: Right facial droop Psych: Alert, oriented, appropriate affect Assessment/Plan: Right Brain Stem Stroke- rectal ASA, will need statin, Eliquis on hold due to acute CVA, neuro recs, follow-up This is an update note for patient , for full note on 12.13.19 see H and P. There is no charge associated with this note.
--- NOTE | 2019-12-13 19:57 | P.PN ---
Progress Note - Text Progress Note Date: 12/13/19 Hospitalist Interval Note Patient seen and examined at bedside. He has not had a bowel movement since admission. No nausea, vomiting, or diarrhea. Feeling hungry. Vital signs reviewed General: non toxic, no distress, appears younger than stated age Derm: warm, dry Head: atraumatic, normocephalic, symmetric Eyes: EOMI, no lid lag, anicteric sclera Mouth: no lip lesion, mucus membranes moist Cardiovascular: S1S2 reg, no murmur, positive posterior tibial pulse bilateral, Lungs: CTA bilateral, no rhonchi, no rales , no accessory muscle use Abdominal: soft, nontender to palpation, no guarding, no appreciable organomegaly Ext: no gross muscle atrophy, no edema, no contractures Neuro: CN II-XI grossly intact, no focal neuro deficits Psych: Alert, oriented, appropriate affect Assessment/Plan: Blood per rectum with GI bleed and acute blood loss anemia- case discussed with GI. We'll continue to hold Eliquis. Plan is for endoscopy in a.m. Patient is in agreement. This is an update note for patient , for full note on 12.13.19 see H and P. There is no charge associated with this note.
--- NOTE | 2019-12-13 21:17 | P.CONS ---
History of Present Illness - Reason for Consult Consult date: 12/13/19 Blood per rectum Requesting physician: Jammie Seay - Chief Complaint Blood per rectum - History of Present Illness 89-year-old male with a medical history significant for hyperlipidemia, hypertension, and atrial fibrillation on anticoagulation therapy with Eliquis who presented to the hospital with complaints of bright red blood per rectum. Patient reports noting blood per rectum developing with bowel movements over the past week. Blood was noted in association with the bowel movements mixed with the stool and on the toilet paper. He denies any prior episodes of similar complaints. The patient was told to hold his anticoagulation therapy with improvement of his symptoms, however on resumption of the anticoagulation therapy he again started to see blood per rectum. He denies any abdominal pain. He reports his last colonoscopy was in 2010 with the surgical service and was normal at that time. He denies any nausea or vomiting. He denies any excessive NSAID use. On presentation hemoglobin was 10.7 and currently stable at 10.2 with WBC 17.1, platelet count 220,000, total bilirubin 0.9, alkaline phosphatase 45, AST 25 and ALT 13. Stool testing was positive for blood. Nonobstructive bowel gas pattern on x-ray abdomen. Review of Systems REVIEW OF SYSTEMS: CONSTITUTIONAL: Denies any fevers, chills, weight change or fatigue. CARDIOVASCULAR: Denies any chest pain, palpitations high or low blood pressures RESPIRATORY: Denies any shortness of breath, hemoptysis or cough. GENITOURINARY: No dysuria or hematuria. MUSCULOSKELETAL: No weakness reported. SKIN: Denies any new rashes or lesions, jaundice or pallor. PSYCHIATRIC: Denies any depression or anxiety. NEUROLOGY: Denies headache, denies any new focal deficits. EARS/NOSE/THROAT: No recent hearing change, congestion, nasal discharge or sore throat. EYES: No pain in eyes, discharge or change in vision. GASTROINTESTINAL: As per HPI. Past Medical History Past Medical History: Atrial Fibrillation, Hyperlipidemia, Hypertension Additional Past Medical History / Comment(s): DDD, spinal stenosis with bone spur, sciatica, pain clinic epidural injections December 01, 2017 History of Any Multi-Drug Resistant Organisms: None Reported Past Surgical History: Appendectomy, Cholecystectomy, Joint Replacement Additional Past Surgical History / Comment(s): josé luis cataract surgery lens implant, Right knee replacement Past Anesthesia/Blood Transfusion Reactions: No Reported Reaction Past Psychological History: No Psychological Hx Reported Smoking Status: Unknown if ever smoked Past Alcohol Use History: None Reported Additional Past Alcohol Use History / Comment(s): smoked 10 years <1/2ppd quit 1957 Past Drug Use History: None Reported - Past Family History Brother(s) Family Medical History: Cancer Additional Family Medical History / Comment(s): colon cancer Medications and Allergies Home Medications Medication Instructions Recorded Confirmed Type Atorvastatin [Lipitor] 10 mg PO HS 12/03/14 12/12/19 History Hydrochlorothiazide 12.5 mg PO DAILY 12/31/17 12/12/19 History HYDROcodone/APAP 7.5-325MG [[place] 1 tab PO Q6HR PRN 06/28/18 12/12/19 History 7.5-325] Garlic 1 tab PO DAILY 12/12/19 12/12/19 History Losartan [Cozaar] 50 mg PO DAILY 12/13/19 12/13/19 History Allergies Allergy/AdvReac Type Severity Reaction Status Date / Time Penicillins Allergy Unknown Verified 12/12/19 23:18 Sulfa (Sulfonamide Allergy Unknown Verified 12/12/19 23:18 Antibiotics) Physical Exam Vitals: Vital Signs Temp Pulse Pulse Resp BP BP Pulse Ox 12/13/19 08:00 67 17 12/13/19 07:00 97.8 F 67 17 152/68 97 12/13/19 03:30 98.3 F 101 H 20 117/81 97 12/13/19 02:30 98.2 F 60 20 105/64 96 12/12/19 23:55 98.0 F 82 14 131/75 95 12/12/19 22:32 73 16 102/66 99 12/12/19 21:30 73 18 105/69 98 12/12/19 20:40 97.6 F 77 18 114/64 99 Intake and Output 12/12/19 12/13/19 12/13/19 22:59 06:59 14:59 Intake Total 750 Balance 750 Intake: Intake, IV Titration 750 Amount Sodium Chloride 0.9% 1, 750 000 ml @ 125 mls/hr IV . Q8H [facility] Rx#:[id number] Oral 0 Other: Voiding Method Toilet Toilet # Voids 2 Weight 77.111 kg 77.111 kg On physical examination, patient appears comfortable in no apparent distress. HEAD: Normocephalic, atraumatic. EYES: No scleral icterus. No conjunctival injection. MOUTH: No lesions, tongue midline. NECK: Trachea midline, no gross abnormalities. CHEST: Clear to auscultation with no wheezing or rhonchi appreciated. HEART: Regular rate and rhythm. ABDOMEN: Soft, obese. Bowel sounds are positive. No organomegaly. No guarding or rigidity. EXTREMITIES: No pedal edema. SKIN: No rashes, no jaundice. NEUROLOGIC: Alert and oriented x3. No focal deficits. Results CBC & Chem 7: 12/13/19 12:10 12/13/19 05:08 Labs: Abnormal Lab Results - Last 24 Hours (Table) 12/12/19 12/12/19 12/12/19 Range/Units 20:55 20:55 20:55 WBC 18.0 H (3.8-10.6) k/uL RBC 3.60 L (4.30-5.90) m/uL Hgb 10.7 L (13.0-17.5) gm/dL Hct 33.1 L (39.0-53.0) % Lymphocytes # (Manual) 10.44 H (1.0-4.8) k/uL Monocytes # (Manual) (0-1.0) k/uL Sodium 130 L (137-145) mmol/L Chloride 96 L (98-107) mmol/L Glucose 115 H (74-99) mg/dL Calcium 7.6 L (8.4-10.2) mg/dL Total Protein 5.1 L (6.3-8.2) g/dL Albumin 2.7 L (3.5-5.0) g/dL Crossmatch See Detail 12/13/19 12/13/19 Range/Units 05:08 05:08 WBC 17.1 H (3.8-10.6) k/uL RBC 3.35 L (4.30-5.90) m/uL Hgb 10.2 L (13.0-17.5) gm/dL Hct 30.9 L (39.0-53.0) % Lymphocytes # (Manual) 10.26 H (1.0-4.8) k/uL Monocytes # (Manual) 1.03 H (0-1.0) k/uL Sodium 129 L (137-145) mmol/L Chloride 97 L (98-107) mmol/L Glucose (74-99) mg/dL Calcium 8.0 L (8.4-10.2) mg/dL Total Protein (6.3-8.2) g/dL Albumin (3.5-5.0) g/dL Crossmatch Abdominal x-ray: report reviewed (Nonobstructive bowel gas pattern on x-ray abdomen.) Assessment and Plan (1) Anemia associated with acute blood loss Narrative/Plan: 89-year-old male presenting with painless bright red blood per rectum on anti coagulation therapy. No prior episodes. He does report a remote history of colonoscopy in 2010 which was normal. Denies any nausea or vomiting. No prior history of GI bleed. No abdominal pain associated with his symptoms. Unclear if this is secondary to hemorrhoidal bleeding, diverticular bleeding, AVM or other etiology. Current Visit: Yes Status: Acute Code(s): D62 - ACUTE POSTHEMORRHAGIC ANEMIA SNOMED Code(s): 725063668 (2) GI bleed Current Visit: Yes Status: Acute Code(s): K92.2 - GASTROINTESTINAL HEMORRHAGE, UNSPECIFIED SNOMED Code(s): 28690447 (3) Hematochezia Current Visit: Yes Status: Acute Code(s): K92.1 - MELENA SNOMED Code(s): 715230505 Plan: Supportive care Continue to monitor hemoglobin and hematocrit and transfuse as needed Continue to hold anticoagulation therapy Okay for diet tonight, clear liquid diet tomorrow Plan for colonoscopy on 12/15/2019 in the morning (discussed with the patient's) Bowel prep ordered for tomorrow Thank you for allowing us to participate in the care of the patient we will continue to follow
[2019-12-14] MEDS: SODIUM CHLORIDE 0.9% 1,000 ML IV SCH ×2 (04:28→18:58)
[2019-12-14 06:33] LABS: HCT 33.9 % (39.0-53.0); HGB 11.2 gm/dL (13.0-17.5); MCH 30.6 pg (25.0-35.0); MCHC 32.9 g/dL (31.0-37.0); MCV 92.9 fL (80.0-100.0); Mean Platelet Volume 6.9; Platelet Count 277 k/uL (150-450); RBC 3.64 m/uL (4.30-5.90); RDW 14.5 % (11.5-15.5); WBC 18.2 k/uL (3.8-10.6)
[2019-12-14 06:46] LABS: Calcium 8.3 mg/dL (8.4-10.2); Potassium 4.1 mmol/L (3.5-5.1)
[2019-12-14] MEDS: PANTOPRAZOLE 40 MG/10 ML VIAL IV SCH ×2 (09:15→20:31)
[2019-12-14] MEDS ORDERED: PEG 3350-NA SULF,BICARB,CL/KCL 4,000 ML BOTTLE PO ONE (16:00)
[2019-12-14] MEDS: DEXTROSE 5%-0.45% NACL 1,000 ML IV SCH (16:48)
[2019-12-14] MEDS ORDERED: BISACODYL 5 MG TABLET.DR PO ONE (18:00)
--- NOTE | 2019-12-14 18:35 | P.PN ---
Subjective Progress Note Date: 12/14/19 Principal diagnosis: Bright red blood per rectum Patient is an 89-year-old male with a medical history of hyperlipidemia, hypertension, and atrial fibrillation on Eliquis who presented to the hospital with complaints of bright red blood per rectum. He was subsequently admitted f or possible GI bleed. Hemoglobin has been stable since admission. Patient seen and examined at bedside. He reports that last evening when he was doing his prep he was having lots of bright red blood per rectum including not being able to control his bowel movements. He denies any chest pain, shortness breath, nausea, or vomiting. He is requesting to stay on a clear liquid diet until his colonoscopies performed tomorrow. Objective - Vital Signs Vital signs: Vital Signs Temp 98.1 F 12/14/19 07:00 Pulse 80 12/14/19 08:40 Resp 17 12/14/19 08:40 BP 105/67 12/14/19 07:00 Pulse Ox 96 12/14/19 07:00 Intake & Output 12/13/19 12/14/19 12/14/19 18:59 06:59 18:59 Intake Total 375 0 Output Total 250 Balance 125 0 Intake: Intake, IV Titration 375 Amount Sodium Chloride 0.9% 1, 375 000 ml @ 125 mls/hr IV . Q8H [facility] Rx#:[id number] Oral 0 Output: Urine 250 Other: Voiding Method Toilet Toilet Toilet # Voids 2 # Bowel Movements 1 - Exam General: Ill-appearing, no distress, appears at stated age Derm: warm, dry Head: atraumatic, normocephalic, symmetric Eyes: EOMI, no lid lag, anicteric sclera Mouth: no lip lesion, mucus membranes moist Cardiovascular: S1S2 reg, no murmur, positive posterior tibial pulse bilateral, Lungs: CTA bilateral, no rhonchi, no rales , no accessory muscle use Abdominal: soft, nontender to palpation, no guarding, no appreciable organomegaly Ext: no gross muscle atrophy, no edema, no contractures Neuro: CN II-XI grossly intact, no focal neuro deficits Psych: Alert, oriented, appropriate affect - Labs CBC & Chem 7: 12/14/19 06:03 12/14/19 06:03 Labs: Abnormal Lab Results - Last 24 Hours (Table) 12/14/19 12/14/19 Range/Units 06:03 06:03 WBC 18.2 H (3.8-10.6) k/uL RBC 3.64 L (4.30-5.90) m/uL Hgb 11.2 L (13.0-17.5) gm/dL Hct 33.9 L (39.0-53.0) % Sodium 136 L (137-145) mmol/L Calcium 8.3 L (8.4-10.2) mg/dL Assessment and Plan Assessment: GI bleed, likely lower -Internal hemorrhoid versus AVM versus diverticular bleed versus other -Plans for EGD and colonoscopy on 12/15/2019 -Follow CBC -Clear liquid diet and nothing by mouth after midnight -GI recommendations appreciated -Eliquis is currently on hold Acute blood loss anemia secondary to above -Follow CBC -No indication for transfusion at this point in time Atrial fibrillation -Not on any rate controlling medications -Eliquis currently on hold 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 DVT prophylaxis: SCDs Discussed with: Nursing, Dr. Aponte Anticipated discharge: in AM Anticipated discharge place: home A total of 25 minutes was spent on the care of this complex patient more than 50% of the time was spent in counseling and care coordination.
--- NOTE | 2019-12-14 19:23 | P.PN ---
Subjective Progress Note Date: 12/14/19 Principal diagnosis: Blood per rectum Patient was seen this morning lying in bed. Denying any abdominal pain and tolerating his diet. One bowel movement this morning with some blood mixed in. Objective - Vital Signs Vital signs: Vital Signs Temp 98.2 F 12/14/19 15:00 Pulse 70 12/14/19 16:00 Resp 17 12/14/19 16:00 BP 99/58 12/14/19 15:00 Pulse Ox 96 12/14/19 15:00 Intake & Output 12/14/19 12/14/19 12/15/19 06:59 18:59 06:59 Intake Total 375 0 Output Total 250 Balance 125 0 Intake: Intake, IV Titration 375 Amount Sodium Chloride 0.9% 1, 375 000 ml @ 125 mls/hr IV . Q8H [facility] Rx#:[id number] Oral 0 Output: Urine 250 Other: Voiding Method Toilet Toilet # Voids 2 - Exam On physical examination, patient appears comfortable in no apparent distress. HEAD: Normocephalic, atraumatic. EYES: No scleral icterus. No conjunctival injection. MOUTH: No lesions, tongue midline. NECK: Trachea midline, no gross abnormalities. ABDOMEN: Soft, obese. Bowel sounds are positive. No organomegaly. No guarding or rigidity. EXTREMITIES: No pedal edema. SKIN: No rashes, no jaundice. NEUROLOGIC: Alert and oriented x3. No focal deficits. - Labs CBC & Chem 7: 12/14/19 06:03 12/14/19 06:03 Labs: Abnormal Lab Results - Last 24 Hours (Table) 12/14/19 12/14/19 Range/Units 06:03 06:03 WBC 18.2 H (3.8-10.6) k/uL RBC 3.64 L (4.30-5.90) m/uL Hgb 11.2 L (13.0-17.5) gm/dL Hct 33.9 L (39.0-53.0) % Sodium 136 L (137-145) mmol/L Calcium 8.3 L (8.4-10.2) mg/dL Assessment and Plan (1) Anemia associated with acute blood loss Narrative/Plan: 89-year-old male presenting with painless bright red blood per rectum on anticoagulation therapy. No prior episodes. He does report a remote history of colonoscopy in 2010 which was normal. Denies any nausea or vomiting. No prior history of GI bleed. No abdominal pain associated with his symptoms. Unclear if this is secondary to hemorrhoidal bleeding, diverticular bleeding, AVM or other etiology. Current Visit: Yes Status: Acute Code(s): D62 - ACUTE POSTHEMORRHAGIC ANEMIA SNOMED Code(s): 961912466 (2) GI bleed Current Visit: Yes Status: Acute Code(s): K92.2 - GASTROINTESTINAL HEMORRHAGE, UNSPECIFIED SNOMED Code(s): 86019330 (3) Hematochezia Current Visit: Yes Status: Acute Code(s): K92.1 - MELENA SNOMED Code(s): 178133459 Plan: Supportive care Continue to monitor hemoglobin and hematocrit and transfuse as needed Continue to hold anticoagulation therapy Clear liquid diet and nothing by mouth after midnight Plan for colonoscopy on 12/15/2019 in the morning (discussed with the patient) Bowel prep ordered Thank you for allowing us to participate in the care of the patient we will continue to follow
[2019-12-14] MEDS: LACTATED RINGERS 1,000 ML IV SCH (20:42)
[2019-12-15] MEDS: LACTATED RINGERS 1,000 ML IV SCH (06:13)
[2019-12-15] MEDS: DEXTROSE 5%-0.45% NACL 1,000 ML IV SCH (06:59)
[2019-12-15] MEDS: PANTOPRAZOLE 40 MG/10 ML VIAL IV SCH (07:20)
[2019-12-15] MEDS ORDERED: PROPOFOL 10 MG/ML 20 ML VIAL IV ONE (07:34)
[2019-12-15] MEDS ORDERED: IV FLUID CONTINUATION 1,000 ML IV ONE (07:38)
[2019-12-15 07:43] VITALS: BP 157/74; PULSE 71; RESP 17; TEMP 98.3
[2019-12-15 07:52] LABS: HCT 31.7 % (39.0-53.0); HGB 10.4 gm/dL (13.0-17.5); MCH 30.3 pg (25.0-35.0); MCHC 32.7 g/dL (31.0-37.0); MCV 92.7 fL (80.0-100.0); Mean Platelet Volume 7.1; Platelet Count 276 k/uL (150-450); RBC 3.42 m/uL (4.30-5.90); RDW 14.7 % (11.5-15.5); WBC 15.4 k/uL (3.8-10.6)
[2019-12-15 08:09] LABS: Calcium 8.4 mg/dL (8.4-10.2); Potassium 3.7 mmol/L (3.5-5.1)
--- NOTE | 2019-12-15 08:13 | P.PCN ---
Date of Procedure: 12/15/19 Description of Procedure: BRIEF HISTORY: 89-year-old male with a medical history significant for hyperlipidemia, hypertension, and atrial fibrillation on anticoagulation therapy with Eliquis who presented to the hospital with complaints of bright red blood per rectum. Patient reports noting blood per rectum developing with bowel movements over the past week. Blood was noted in association with the bowel movements mixed with the stool and on the toilet paper. He denies any prior episodes of similar complaints. The patient was told to hold his anticoagulation therapy with improvement of his symptoms, however on resumption of the anticoagulation therapy he again started to see blood per rectum. He denies any abdominal pain. He reports his last colonoscopy was in 2010 with the surgical service and was normal at that time. He denies any nausea or vomiting. He denies any excessive NSAID use. On presentation hemoglobin was 10.7. PROCEDURE PERFORMED: Colonoscopy with polypectomy. PREOPERATIVE DIAGNOSIS: Prior blood per rectum, GI bleed, anemia of acute blood loss. ESTIMATED BLOOD LOSS: Minimal. IV sedation per Anesthesia. PROCEDURE: After informed consent was obtained, the patient, was brought into the endoscopy unit. IV sedation was administered by Anesthesia under continuous monitoring. Digital rectal examination was normal. Initially the Olympus CF-190 flexible video colonoscope was then inserted in the rectum, gradually advanced into the cecum without any difficulty. Careful examination was performed as the scope was gradually being withdrawn. Ileocecal valve and the appendiceal orifice were visualized and appeared normal. The terminal ileum was intubated and appeared normal with no fresh or old blood noted. Prep was excellent. Mucosa of the cecum, ascending colon, transverse colon, descending colon, sigmoid colon, and rectum appeared normal. A few scattered diverticula noted throughout the colon. A diminutive 2 mm polyp removed from the cecum with forceps polypectomy. A few other small subcentimeter polyps noted throughout the colon but not removed in the setting of active GI bleeding. Retroflexion was performed in the rectum and no lesions were seen, low-grade internal hemorrhoids. The patient tolerated the procedure well. IMPRESSION: Some fresh blood noted throughout the colon, with no active bleeding. The terminal ileum was intubated with no old blood or fresh blood noted. Low-grade internal hemorrhoids. Mild pandiverticulosis. A few small, subcentimeter polyps noted throughout the colon and not removed in the setting of active bleeding. Diminutive cecal polyp removed with cold forcep polypectomy. RECOMMENDATIONS: Findings of this examination were discussed with the patient. Okay for low fiber, low residual diet. Would continue to hold anticoagulation for an additional 72 hours or until signs and symptoms of GI bleed stopped. Await pathology from cecal polypectomy. Polyps which were seen and not removed in the setting of active bleeding or small measuring less than a centimeter in size, decision on repeat colonoscopy can be made based on patient's preference within the next 6-12 months.
[2019-12-15 09:55] LABS: Eosinophils # (M) 0.46 k/uL (0-0.7); Lymphocytes # (M) 10.01 k/uL (1.0-4.8); Monocytes # (M) 0.77 k/uL (0-1.0); Neutrophils # (M) 4.16 k/uL (1.3-7.7); Neutrophils % (M) 27 %; Nucleated Red Blood Cells 0 /100 WBC (0-0); Total Cells Counted 100
[2019-12-15 09:59] LABS: Poikilocytosis (M) Present
--- NOTE | 2019-12-15 10:54 | P.DS ---
Providers Date of admission: 12/14/19 07:50 Attending physician: Jammie Seay MD Consults: 12/12/19 22:51 Consult Physician Routine Consulting Provider: Merary Haile Consult Reason/Comments: GI bleed Do you want consulting provider notified?: Yes Primary care physician: Ben Ryan [facility] Course: Patient is an 89-year-old male with a medical history of hyperlipidemia, hypertension, and atrial fibrillation on Eliquis who presented to the hospital with complaints of bright red blood per rectum. He was subsequently admitted for possible GI bleed. Hemoglobin has been stable since admission. GI bleed, likely lower -Patient underwent colonoscopy showing some fresh blood throughout the colon with no active bleeding. Low-grade internal hemorrhoids. A few small polyps. Small cecal polyp status post multiple back to nv -No fiber diet resumed -Recommendation to continue holding Eliquis for 72 hours and as long as no evidence of bleed may resume on Thursday. This was discussed with the patient. He verbalized understanding. Acute blood loss anemia secondary to above -Hemoglobin stable around 10.3. Atrial fibrillation -Not on any rate controlling medications -Eliquis currently on hold. Patient advised to resume on Thursday if no further signs of bleeding CLL -Follows with Dr. Gil -Continue outpatient follow-up Chronic Hyponatremia, resolved -Suspect secondary to hydrochlorothiazide use -Repeat BMP in 3-5 days Hypertension -Continue home regimen. Patient will be discharged home in a stable condition. For further details about this hospitalization please refer to the electronic chart Patient Condition at Discharge: Fair Plan - Discharge Summary Discharge Rx Participant: No New Discharge Prescriptions: Continue Atorvastatin [Lipitor] 10 mg PO HS Hydrochlorothiazide 12.5 mg PO DAILY HYDROcodone/APAP 7.5-325MG [[place] 7.5-325] 1 tab PO Q6HR PRN PRN Reason: Pain Garlic 1 tab PO DAILY Losartan [Cozaar] 50 mg PO DAILY Discharge Medication List Atorvastatin [Lipitor] 10 mg PO HS 12/03/14 [History] Hydrochlorothiazide 12.5 mg PO DAILY 12/31/17 [History] HYDROcodone/APAP 7.5-325MG [[place] 7.5-325] 1 tab PO Q6HR PRN 06/28/18 [History] Garlic 1 tab PO DAILY 12/12/19 [History] Losartan [Cozaar] 50 mg PO DAILY 12/13/19 [History] Follow up Appointment(s)/Referral(s): Ben Ryan MD [Primary Care Provider] - 1-2 days Discharge Disposition: HOME SELF-CARE
== END 2019-12-15 11:48 | disposition home or self-care (01) | DRG 378 ==
LOC: EC 20:37 → 4SSUR 22:49 → UNDOADMIN 22:49 → OBSVTOIN 12-14 07:50
PROVIDERS: ADMIT Internal Medicine; ATTEND Internal Medicine
PROC: 0DBH8ZZ Excision of Cecum, Via Natural or Artificial Opening Endoscopic (ICD-10-PCS; principal; 2019-12-15 08:05)
DX: K57.31 Diverticulosis of large intestine without perforation or abscess with bleeding (principal); D62 Acute posthemorrhagic anemia; E87.1 Hypo-osmolality and hyponatremia; C91.10 Chronic lymphocytic leukemia of B-cell type not having achieved remission; K63.5 Polyp of colon; K64.8 Other hemorrhoids; E78.5 Hyperlipidemia, unspecified; I10 Essential (primary) hypertension; Z96.651 Presence of right artificial knee joint; I48.91 Unspecified atrial fibrillation; Z79.01 Long term (current) use of anticoagulants; Z79.899 Other long term (current) drug therapy; Z80.0 Family history of malignant neoplasm of digestive organs
CPT/HCPCS: 36415; 45380; 74018; 80048; 80053; 82272; 82550; 83735; 84484; 85025; 85027; 85730; 86850; 86900; 86901; 86920; 88305; 93005; 99285